=== PATIENT | female | born 1945 | race Caucasian/White ===

== ENCOUNTER 2016-04-28 12:49 | Inpatient (IN) | payer MEDICARE ==
[~2016-04-28] VITALS: Ht 175.3 cm; Wt 61.4 kg
[2016-04-28 14:00] VITALS: BP 100/43
[2016-04-28] MEDS ORDERED: ALBUTEROL SULFATE 2.5 MG/3 ML NEBU. NEB PRN (14:15)
[2016-04-28] MEDS ORDERED: ACETAMINOPHEN 325 MG TABLET. PO PRN (14:15)
[2016-04-28] MEDS ORDERED: ONDANSETRON PF 4 MG/2 ML VIAL. IV PRN (14:15)
[2016-04-28] MEDS ORDERED: hydrALAZINE 20 MG/ML VIAL. IVP PRN (14:15)
--- NOTE | 2016-04-28 14:27 | PDOC1 ---
History and Physical Past Medical History Pulmonary: Pneumonia CENTRAL NERVOUS SYSTEM: Seizure, Other Psych: Anxiety, Depression, Panic Renal/: Urinary Incontinence Social History Smoke: No ALCOHOL: none Drugs: None Current Medications Current Medications Current Medications Medications (Trade) Dose Ordered Sig/Karen Start Time Stop Time Status Last Admin Dose Admin Acetaminophen (Tylenol) 325 mg PRN Q6HRS PRN 04/28/16 14:15 Acetaminophen/ Hydrocodone Bitart (Lortab 5/325) 1 tab PRN Q6HRS PRN 04/28/16 14:15 Albuterol Sulfate (Ventolin Neb Soln) 2.5 mg PRN Q4HRS PRN 04/28/16 14:15 Hydralazine HCl (Apresoline) 10 mg PRN Q4HRS PRN 04/28/16 14:15 Ondansetron HCl (Zofran) 4 mg PRN Q8HRS PRN 04/28/16 14:15 Allergies Allergies Allergies Coded Allergies Type Severity Reaction Last Updated Verified I S O L A T I O N *CONTACT* Allergy Unknown 09/15/15 Yes No Known Medication Allergies Allergy Unknown 09/15/15 Yes ROS Review of System CONSTITUTIONAL: No fever or chills EYES: No recent changes SKIN: No rash or itching CARDIOVASCULAR: No chest pain, syncope, palpitations, or edema RESPIRATORY: No SOB or cough GASTROINTESTINAL: No nausea, vomiting or abdominal pain NEUROLOGICAL: weakness bilateral, ENDOCRINE: No cold or heat intolerance GENITOURINARY: indwelling catheter MUSCULOSKELETAL: left leg pain LYMPHATICS: No enlarged lymph nodes PSYCHIATRIC: No anxiety or depression Physical Exam Physical Exam GEN.: No apparent distress. Alert and oriented. HEENT: Head is normocephalic, atraumatic NECK: Supple. no jvd LUNGS: Clear to auscultation. normal airflow HEART: RRR, S1, S2 present. Peripheral pulses intact ABDOMEN: Soft, nontender. Positive bowel sounds. EXTREMITIES: Without any cyanosis. left thigh warm and painful NEUROLOGIC: Normal speech, not able to move b/l LE, PSYCHIATRIC: Normal affect, normal mood. SKIN: No visible rash VTE Prophylaxis Ordered VTE Prophylaxis Devices: Yes VTE Pharmacological Prophylaxi: Contraindicated VEE TORRES MD Apr 28, 2016 14:27
[2016-04-28] MEDS: HYDROCODONE/APAP 5/325MG TABLET. PO PRN ×2 (15:10→23:19)
--- NOTE | 2016-04-28 16:26 | PDOC2 ---
NEUROLOGY CONSULT Date of Admission Date of Admission DATE: 04/28/16 TIME: 16:07 Reason for Consult Reason for Consult: IMPRESSION: Worsening of chronic paraplegia, worse x 1 week. Chronic urinary incontinence. Worsening of chronic LE weakness > UE. Seizure, hx Possible stroke in 09/16. Smoking Drinking MS x 22 years per her statement but not showed on MRI in 2015. RECOMMENDATIONS/PLAN: Brain and C-spine MRI w/wo contrast. Lab for TSH, Vit B12, Vit D, VEGA, UA, CPK, UDS OT/PT. HISTORY OF THE PRESENT ILLNESS: 70-y-old female patient stated that she has been having MS for 22 years. She said she had flare-up in the past years, but became persistent paraplegia and wheelchair bound sometimes for about 5 years. She stated she was able to mobile a week ago, but totally paraplegic since last Monday. She has been using Lebron for 5 years. She has not received any MS treatment. She said she has not seen Neurology before. She had brain MRI in 2015 which did not show evidence of MS. PAST MEDICAL HISTORY: Please see above. PAST SURGERY HISTORY: No major surgery recently. ALLERGY: Unknown MEDICATIONS: Refer to [facility] HISTORY: Non contributory. SOCIAL HISTORY: Denies illicit drug use. She smokes 1 pack of cigarettes a day for about 40 years, then decreased 1 pack for 2 days. She drinks alcohol from time to time. REVIEW OF SYSTEMS: Constitutional: Malnutrition. Head: No recent traumatic brain or head injury. Skin: No edema, or rash. Ear: No infection, tinnitus. Eyes: No vision loss or color blindness. Nose: No bleeding or purulent discharges. Hearing: No hearing decrease. Neck: No injury. Breast: No history of cancer, masses,or discharges. Cardiac: No PR, arrhythmia. Pulmonary: No COPD. GI: No GI ulcer, GI bleeding. Urinary/genital: incontinence. Endocrinologic: No cousin face, craniofacial dysmorphism, polydactyly, goiter. Skeletomuscular: Generalized weakness. Neurological: see HP. Psychiatric: Smoking, longstanding Otherwise, not -tkhve review of systems. PHYSICAL EXAMINATION: General appearance is in subacute on chronic distress. HEENT: Normocephalic and nontraumatic. Eyes, nose, ears, and throat are unremarkable. Neck is supple. No lymphadenopathy. No bruits are heard over the carotid artery. No crepitus. Cardiovascular: S1, S2, regular rate and rhythm. Pulmonary: Clear to auscultation bilaterally. Abdomen: Bowel sounds are positive. Extremities: No rash, lesions. Edema noted in LE. No restriction of range of motion in UE, paraplegic in LE NEUROLOGICAL EXAMINATION: Alert Oriented to time, place and person. PERRL. EOMI. CN: no focal findings. Muscle tone: fluctuated. Muscle strength: 4 UE, 1-2 LE DTR: 1+ UE, 0 at knee Plantar reflex: No response bilaterally Gait: Unable to walk. Sensory exam: no acute abnormal findings. No obvious cerebellar signs elicited. F-T-N test slow and not accurate. Current Medications Current Medications Current Medications Acetaminophen (Tylenol) 325 mg PRN Q6HRS PRN PO MILD PAIN / TEMP; Start at 14:15 Acetaminophen/ Hydrocodone Bitart (Lortab 5/325) 1 tab PRN Q6HRS PRN PO MODERATE TO SEVERE PAIN Last administered on 04/28/16t 15:10; Start 04/28/16 at 14:15 Hydralazine HCl (Apresoline) 10 mg PRN Q4HRS PRN IVP ELEVATED BP, SEE COMMENTS ; Start 04/28/16 at 14:15 Ondansetron HCl (Zofran) 4 mg PRN Q8HRS PRN IV NAUSEA/VOMITING; Start 04/28/16 at 14:15 Albuterol Sulfate (Ventolin Neb Soln) 2.5 mg PRN Q4HRS PRN NEB SHORTNESS OF BREATH; Start 04/28/16 at 14:15 Allergies Allergies: Coded Allergies: I S O L A T I O N *CONTACT* (Verified Allergy, Unknown, 09/15/15) chronic C. diff No Known Medication Allergies (Verified Allergy, Unknown, 09/15/15) Vitals VITALS Vital Signs Date Time Temp Pulse Resp B/P Pulse Ox O2 Delivery O2 Flow Rate FiO2 04/28/16 15:10 Room Air 04/28/16 14:00 97.5 79 16 100/43 92 97.5 JAY GODINEZ MD Apr 28, 2016 16:26
--- NOTE | 2016-04-28 16:56 | HP ---
ADMIT DATE: 04/28/2016 CHIEF COMPLAINT: Bilateral lower extremity pain and weakness. HISTORY OF PRESENT ILLNESS: This is a 70-year-old female patient with prior history of multiple sclerosis and chronic DVTs, on Xarelto. She was recently diagnosed with hematoma on 04/20, at that time, she was admitted to [facility] after she was discharged on 04/24. However, this morning she presented to [facility] again with worsening weakness in bilateral lower extremities and repeat imaging studies as per the ER report showed worsening of hematoma on the left thigh. Upon my examination, the patient complains of worsening weakness in bilateral lower extremities. Per patient, she was able to have some function in bilateral lower extremities; however, she has been wheelchair bound for long time. She denies any sensory changes, but weakness is pronounced. Currently, she has been on treatment for C. diff. PAST MEDICAL HISTORY: Hypertension, recurrent urinary tract infections, C. diff infection, multiple sclerosis, bilateral lower extremity DVTs. PAST SURGICAL HISTORY: Appendectomy, tonsillectomy. PERSONAL HISTORY: No smoking, no alcohol, currently wheelchair bound in a [place] [facility]. REVIEW OF SYSTEMS: Please see my electronic H and P. PHYSICAL EXAMINATION: Please see my electronic H and P. ALLERGIES: NKDA. LABORATORY FINDINGS: WBC 12,000, hemoglobin 13.2, hematocrit is ____. Platelets are 140. Creatinine is 1.2, sodium is 136, potassium is 4.7, chloride is 98, carbon dioxide 23, glucose level is 101. ASSESSMENT: 1. Left leg hematoma with pain related to oral anticoagulation. 2. Multiple sclerosis with bilateral lower extremity weakness, questionable exacerbation. 3. Hypertension. 4. Recurrent C. diff. 5. Recurrent urinary tract infections. 6. Thrombocytopenia around 76,000 as per [facility] report. PLAN: 1. We will consult Orthopedics for further evaluation. At this time, I will try to pain as tolerated. 2. The patient is on chronic indwelling Lebron catheter. 3. Also consult Neurology for possible MRI and further investigations. 4. Stool studies for C. diff. 5. Home medications list be reviewed. RN needs to call pharmacy to verify her home medications. 6. As per the report, the patient is paraplegic and wheelchair bound. 7. DVT prophylaxis with , hold Lovenox due to thrombocytopenia and hematoma. 8. P.r.n. hydralazine 10 mg IV q. 4 hours for hypertension. PROGNOSIS: Guarded. VEE TORRES MD DR: SHAINA/salma JOB#: [id number] / [id number] SAI
[2016-04-28] MEDS ORDERED: LACT1CAP2 PO (18:18)
[2016-04-28] MEDS ORDERED: BACL20TA PO (18:18)
[2016-04-28] MEDS ORDERED: CARV6.252 PO (18:19)
[2016-04-28] MEDS ORDERED: FURO40TA4 PO (18:21)
[2016-04-28] MEDS ORDERED: CHOL4POW11 PO (18:21)
[2016-04-28] MEDS ORDERED: HYDR-2867 PO (18:21)
[2016-04-28] MEDS ORDERED: LISI-334 PO (18:22)
[2016-04-28] MEDS ORDERED: PARO40TA2 PO (18:23)
[2016-04-28] MEDS ORDERED: MULT1TAB52 PO (18:23)
[2016-04-28] MEDS ORDERED: NICO1PAT25 TP (18:23)
[2016-04-28] MEDS ORDERED: POTA10CA PO (18:25)
[2016-04-28] MEDS ORDERED: VANC125S PO (18:25)
[2016-04-28] MEDS ORDERED: DABI150C PO (18:25)
[2016-04-28] MEDS ORDERED: ALPR0.25 PO (18:25)
[2016-04-28] MEDS ORDERED: ALPRAZOLAM 0.25 MG TABLET PO PRN (18:30)
[2016-04-28 19:00] VITALS: BP 87/57
[2016-04-28] MEDS ORDERED: CARVEDILOL 6.25 MG TABLET PO SCH (19:00)
[2016-04-28] MEDS ORDERED: MORPHINE ER 15 MG TABLET.ER PO ONE (20:15)
[2016-04-28] MEDS: BACLOFEN 10 MG TABLET PO SCH (20:49)
[2016-04-28] MEDS: HYDRALAZINE 10 MG TABLET PO SCH (20:55)
[2016-04-28] MEDS ORDERED: LISINOPRIL 20 MG TABLET PO SCH (21:00)
[2016-04-28] MEDS ORDERED: IV NORMAL SALINE 500ML BAG 500 ML IV ONE (21:15)
[2016-04-28] MEDS: VANCOMYCIN 125 MG/2.5 ML ORAL SOLUTION. PO SCH (21:19)
[2016-04-28 23:00] VITALS: BP 118/65
[2016-04-28] MEDS: FUROSEMIDE 40 MG TABLET PO SCH (23:18)
[2016-04-29 03:00] VITALS: BP 99/58
[2016-04-29 04:52] LABS: BASO # 0.1 x10^3/uL (0.0-0.2); BASO % 1 % (0-3); EOS % 4 % (0-3); HEMATOCRIT 36.6 % (36.0-47.0); LYMPH # 1.9 x10^3/uL (1.0-4.8); LYMPH % 17 % (24-48); MEAN CORPUSCULAR HEMOGLOBIN 29 pg (25-35); MEAN CORPUSCULAR HGB CONC 33 g/dL (31-37); MEAN CORPUSCULAR VOLUME 89 fL (79-100); MONO % 11 % (0-9); NEUT % 66 % (31-73); PLATELET COUNT 275 x10^3/uL (140-400); RED BLOOD COUNT 4.13 x10^6/uL (3.50-5.40); RED CELL DISTRIBUTION WIDTH 15.2 % (11.5-14.5); WHITE BLOOD COUNT 10.7 x10^3/uL (4.0-11.0)
[2016-04-29 05:44] LABS: CALCIUM 8.6 mg/dL (8.5-10.1); CREATININE 0.7 mg/dL (0.6-1.0); GFR 82.5; POTASSIUM 4.3 mmol/L (3.5-5.1)
[2016-04-29 06:03] LABS: BARBITURATES NEG (NEG); BENZODIAZEPINES NEG (NEG); CANNABINOIDS NEG (NEG); COCAINE NEG (NEG); METHADONE NEG (NEG); OPIATES POS (NEG); PHENCYCLIDINE NEG (NEG)
[2016-04-29 06:05] LABS: ETHANOL, URINE NEG (NEG)
[2016-04-29 07:00] VITALS: BP 103/63
[2016-04-29] MEDS: CARVEDILOL 6.25 MG TABLET PO SCH ×2 (08:00→17:50)
[2016-04-29] MEDS: POTASSIUM CHLORIDE 20 MEQ TABLET.ER. PO SCH (08:00)
[2016-04-29] MEDS: VANCOMYCIN 125 MG/2.5 ML ORAL SOLUTION. PO SCH ×4 (09:00→20:33)
[2016-04-29] MEDS: BACLOFEN 10 MG TABLET PO SCH ×3 (09:00→20:33)
[2016-04-29] MEDS: NICOTINE 14MG PATCH. TD SCH ×2 (09:00→14:36)
[2016-04-29] MEDS: PAROXETINE 20 MG TABLET. PO SCH (09:00)
[2016-04-29] MEDS: MULTIVITAMIN with MINERAL TABLET. PO SCH (09:00)
[2016-04-29] MEDS: HYDRALAZINE 10 MG TABLET PO SCH ×2 (09:00→20:33)
[2016-04-29] MEDS ORDERED: FUROSEMIDE 40 MG TABLET PO SCH (09:00)
[2016-04-29] MEDS: LACTOBACILLUS ACIDOPH & BULGAR 1 TABLET. PO SCH (09:00)
[2016-04-29] MEDS: CHOLESTYRAMINE/ASPARTAME 4 GM PACKET PO SCH (09:00)
[2016-04-29] MEDS: HYDROCODONE/APAP 5/325MG TABLET. PO PRN ×2 (09:28→20:33)
[2016-04-29] MEDS ORDERED: GADOBUTROL 7.5 MMOL/7.5 ML VIAL IV ONE (09:30)
--- NOTE | 2016-04-29 10:40 | RAD ---
PROCEDURE MRI brain with and without contrast. HISTORY Multiple sclerosis, extremity weakness. TECHNIQUE Sagittal T1, sagittal FLAIR, axial T1, axial T2, axial FLAIR, axial T2 gradient, diffusion imaging with ADC map, post-contrast axial, and post-contrast coronal sequences are provided. Patient received 1 dose of 6 milliliters of intravenous Gadavist for today's exams. COMPARISON September 15, 2015. FINDINGS There is prominence of the ventricles and sulci. FLAIR hyperintensities in the supratentorial white matter including a few oriented radially from the lateral ventricles are noted and similar to prior exam. One potential lesion in the leena on the right is noted. No callosal lesion is identified. No new lesion is identified. There is no enhancement with any of these lesions. There is no intracranial hemorrhage or extra-axial fluid collection. There is no mass effect or midline shift. There is no restricted diffusion to suggest an acute infarct. Cervicomedullary junction is unremarkable. Pituitary and suprasellar region are unremarkable. Intracranial flow voids are preserved. There is minimal ethmoid mucosal thickening. There is no pathologic enhancement. IMPRESSION 1. Nonspecific FLAIR hyperintensities in the supratentorial white matter. None demonstrate any associated enhancement. No new white matter lesion is apparent. This may represent a combination of demyelinating plaque and small vessel ischemic disease. 2. Brain parenchymal volume loss. Electronically signed by: Torey Wade MD (Apr 29, 2016 10:39:40)
--- NOTE | 2016-04-29 10:48 | RAD ---
PROCEDURE MRI cervical spine with and without contrast. HISTORY Multiple sclerosis. Extremity weakness. TECHNIQUE Sagittal T1, sagittal T2, sagittal STIR, sagittal post contrast, axial T1, axial T2, axial T2 gradient, and axial post-contrast sequences are provided. 6 milliliters of intravenous Gadavist was administered in total for today's exams without complication. COMPARISON None. FINDINGS There is no cord hyperintensity confirmed in 2 planes to suggest a demyelinating plaque within the cervical cord. There is no pathologic enhancement within the cord. Cervicomedullary junction is unremarkable. There is no malalignment. There is no worrisome marrow lesion. There is no marrow edema. Degenerative findings by individual level are as follows: C2-C3: There is minimal facet hypertrophy and mild right uncinate process spurring without canal or foraminal compromise. C3-C4: Disc osteophyte complex and uncinate process spurring are noted. There is buckling of ligamentum flavum. Midline AP diameter of the thecal sac is 11 millimeters. There is no foraminal narrowing. C4-C5: Disc osteophyte complex and uncinate process spurring are noted. There is buckling of ligamentum flavum and facet hypertrophy. Midline AP diameter of the thecal sac is narrowed to 10 millimeters. Foraminal narrowing is probably moderate. C5-C6: Disc osteophyte complex and uncinate process spurring are noted. There is buckling of ligamentum flavum. Midline AP diameter of the thecal sac is 10 millimeters. There is severe right and probably moderate to severe left foraminal narrowing. C6-C7: There is a minimal disc osteophyte complex and mild right facet hypertrophy, without canal or foraminal compromise. C7-T1: There is right facet hypertrophy. There is no canal or foraminal compromise. IMPRESSION 1. No cord hyperintensity or cord enhancement to suggest demyelinating plaque. 2. Degenerative changes in the cervical spine, greatest at C5-C6 and C4-C5. Electronically signed by: Torey Wade MD (Apr 29, 2016 10:46:21)
[2016-04-29 11:00] VITALS: BP 98/53
[2016-04-29 11:21] LABS: BILIRUBIN,URINE NEGATIVE (NEG); GLUCOSE,URINE NEGATIVE (NEG); NITRITE,URINE NEGATIVE (NEG); PH,URINE 5.5; PROTEIN,URINE NEGATIVE (NEG-TRACE); UROBILINOGEN,URINE 0.2 mg/dL (0.2 mg/dL)
[2016-04-29 11:45] LABS: BACTERIA,URINE FEW /HPF (0-FEW); RBC,URINE RARE /HPF (0-2); SQUAMOUS EPITHELIAL CELL,UR OCC /LPF
--- NOTE | 2016-04-29 14:08 | PDOC ---
PROGRESS NOTES Chief Complaint Chief Complaint MS exacerbation LE weakness, bilateral Left leg hematoma with pain related to oral anticoagulation. swelling on OSH imaging htn HX C. diff. Thrombocytopenia was reported, normal here History of Present Illness History of Present Illness admit last night, still in leg pain, but str better declines pt and OT today Vitals Vitals Vital Signs Date Time Temp Pulse Resp B/P Pulse Ox O2 Delivery O2 Flow Rate FiO2 04/29/16 11:00 97.9 82 16 98/53 98 Room Air 97.9 Physical Exam General: Alert, Oriented X3, Cooperative, mild distress, moderate distress Heart: Regular rate, No murmurs Abdomen: Normal bowel sounds Extremities: No clubbing, Other (weakness bilat, diffuse) Skin: No rashes Labs LABS Laboratory Tests Test 04/28/16 17:15 04/28/16 18:30 04/29/16 03:50 04/29/16 05:00 Nasal Screen MRSA (PCR) Negative (Negative) Creatine Kinase 668U/L (26-192) Vitamin B12 Level 484pg/mL (211-946) Thyroid Stimulating Hormone (TSH) 0.304uIU/mL (0.358-3.74) White Blood Count 10.7x10^3/uL (4.0-11.0) Red Blood Count 4.13x10^6/uL (3.50-5.40) Hemoglobin 12.0g/dL (12.0-15.5) Hematocrit 36.6% (36.0-47.0) Mean Corpuscular Volume 89fL (79-100) Mean Corpuscular Hemoglobin 29pg (25-35) Mean Corpuscular Hemoglobin Concent 33g/dL (31-37) Red Cell Distribution Width 15.2% (11.5-14.5) Platelet Count 275x10^3/uL (140-400) Neutrophils (%) (Auto) 66% (31-73) Lymphocytes (%) (Auto) 17% (24-48) Monocytes (%) (Auto) 11% (0-9) Eosinophils (%) (Auto) 4% (0-3) Basophils (%) (Auto) 1% (0-3) Neutrophils # (Auto) 7.0x10^3uL (1.8-7.7) Lymphocytes # (Auto) 1.9x10^3/uL (1.0-4.8) Monocytes # (Auto) 1.2x10^3/uL (0.0-1.1) Eosinophils # (Auto) 0.5x10^3/uL (0.0-0.7) Basophils # (Auto) 0.1x10^3/uL (0.0-0.2) Sodium Level 136mmol/L (136-145) Potassium Level 4.3mmol/L (3.5-5.1) Chloride Level 103mmol/L (98-107) Carbon Dioxide Level 24mmol/L (21-32) Anion Gap 9 (6-14) Blood Urea Nitrogen 31mg/dL (7-20) Creatinine 0.7mg/dL (0.6-1.0) Estimated GFR (Cockcroft-Gault) 82.5 Glucose Level 96mg/dL (70-99) Calcium Level 8.6mg/dL (8.5-10.1) Urine Collection Type Unknown Urine Color Yellow Urine Clarity Clear Urine pH 5.5 Urine Specific Beaman 1.010 Urine Protein Negativemg/dL (NEG-TRACE) Urine Glucose (UA) Negativemg/dL (NEG) Urine Ketones (Stick) Negativemg/dL (NEG) Urine Blood Trace (NEG) Urine Nitrite Negative (NEG) Urine Bilirubin Negative (NEG) Urine Urobilinogen Dipstick 0.2mg/dL (0.2 mg/dL) Urine Leukocyte Esterase Small (NEG) Urine RBC Rare/HPF (0-2) Urine WBC 5-10/HPF (0-4) Urine Squamous Epithelial Cells Occ/LPF Urine Bacteria Few/HPF (0-FEW) Urine Opiates Screen Pos (NEG) Urine Methadone Screen Neg (NEG) Urine Barbiturates Neg (NEG) Urine Phencyclidine Screen Neg (NEG) Urine Amphetamine/Methamphetamine Neg (NEG) Urine Benzodiazepines Screen Neg (NEG) Urine Cocaine Screen Neg (NEG) Urine Cannabinoids Screen Neg (NEG) Urine Ethyl Alcohol Neg (NEG) Review of Systems Review of Systems pain, weakness, nausea, lethargy Assessment and Plan Assessmemt and Plan Ortho to eval left leg pain, may review OSH imaging, records Neuro eval for MS, acute phase pt feels a little imrpoved today Problems: Comment Review of Relevant I have reviewed the following items sridevi (where applicable) has been applied. Labs Laboratory Tests Test 1/26/17 17:15 04/28/16 18:30 04/29/16 03:50 04/29/16 05:00 Nasal Screen MRSA (PCR) Negative (Negative) Creatine Kinase 668U/L (26-192) Vitamin B12 Level 484pg/mL (211-946) Thyroid Stimulating Hormone (TSH) 0.304uIU/mL (0.358-3.74) White Blood Count 10.7x10^3/uL (4.0-11.0) Red Blood Count 4.13x10^6/uL (3.50-5.40) Hemoglobin 12.0g/dL (12.0-15.5) Hematocrit 36.6% (36.0-47.0) Mean Corpuscular Volume 89fL (79-100) Mean Corpuscular Hemoglobin 29pg (25-35) Mean Corpuscular Hemoglobin Concent 33g/dL (31-37) Red Cell Distribution Width 15.2% (11.5-14.5) Platelet Count 275x10^3/uL (140-400) Neutrophils (%) (Auto) 66% (31-73) Lymphocytes (%) (Auto) 17% (24-48) Monocytes (%) (Auto) 11% (0-9) Eosinophils (%) (Auto) 4% (0-3) Basophils (%) (Auto) 1% (0-3) Neutrophils # (Auto) 7.0x10^3uL (1.8-7.7) Lymphocytes # (Auto) 1.9x10^3/uL (1.0-4.8) Monocytes # (Auto) 1.2x10^3/uL (0.0-1.1) Eosinophils # (Auto) 0.5x10^3/uL (0.0-0.7) Basophils # (Auto) 0.1x10^3/uL (0.0-0.2) Sodium Level 136mmol/L (136-145) Potassium Level 4.3mmol/L (3.5-5.1) Chloride Level 103mmol/L (98-107) Carbon Dioxide Level 24mmol/L (21-32) Anion Gap 9 (6-14) Blood Urea Nitrogen 31mg/dL (7-20) Creatinine 0.7mg/dL (0.6-1.0) Estimated GFR (Cockcroft-Gault) 82.5 Glucose Level 96mg/dL (70-99) Calcium Level 8.6mg/dL (8.5-10.1) Urine Collection Type Unknown Urine Color Yellow Urine Clarity Clear Urine pH 5.5 Urine Specific Beaman 1.010 Urine Protein Negativemg/dL (NEG-TRACE) Urine Glucose (UA) Negativemg/dL (NEG) Urine Ketones (Stick) Negativemg/dL (NEG) Urine Blood Trace (NEG) Urine Nitrite Negative (NEG) Urine Bilirubin Negative (NEG) Urine Urobilinogen Dipstick 0.2mg/dL (0.2 mg/dL) Urine Leukocyte Esterase Small (NEG) Urine RBC Rare/HPF (0-2) Urine WBC 5-10/HPF (0-4) Urine Squamous Epithelial Cells Occ/LPF Urine Bacteria Few/HPF (0-FEW) Urine Opiates Screen Pos (NEG) Urine Methadone Screen Neg (NEG) Urine Barbiturates Neg (NEG) Urine Phencyclidine Screen Neg (NEG) Urine Amphetamine/Methamphetamine Neg (NEG) Urine Benzodiazepines Screen Neg (NEG) Urine Cocaine Screen Neg (NEG) Urine Cannabinoids Screen Neg (NEG) Urine Ethyl Alcohol Neg (NEG) Laboratory Tests Test 04/28/16 17:15 04/28/16 18:30 04/29/16 03:50 04/29/16 05:00 Nasal Screen MRSA (PCR) Negative (Negative) Creatine Kinase 668U/L (26-192) Vitamin B12 Level 484pg/mL (211-946) Thyroid Stimulating Hormone (TSH) 0.304uIU/mL (0.358-3.74) White Blood Count 10.7x10^3/uL (4.0-11.0) Red Blood Count 4.13x10^6/uL (3.50-5.40) Hemoglobin 12.0g/dL (12.0-15.5) Hematocrit 36.6% (36.0-47.0) Mean Corpuscular Volume 89fL (79-100) Mean Corpuscular Hemoglobin 29pg (25-35) Mean Corpuscular Hemoglobin Concent 33g/dL (31-37) Red Cell Distribution Width 15.2% (11.5-14.5) Platelet Count 275x10^3/uL (140-400) Neutrophils (%) (Auto) 66% (31-73) Lymphocytes (%) (Auto) 17% (24-48) Monocytes (%) (Auto) 11% (0-9) Eosinophils (%) (Auto) 4% (0-3) Basophils (%) (Auto) 1% (0-3) Neutrophils # (Auto) 7.0x10^3uL (1.8-7.7) Lymphocytes # (Auto) 1.9x10^3/uL (1.0-4.8) Monocytes # (Auto) 1.2x10^3/uL (0.0-1.1) Eosinophils # (Auto) 0.5x10^3/uL (0.0-0.7) Basophils # (Auto) 0.1x10^3/uL (0.0-0.2) Sodium Level 136mmol/L (136-145) Potassium Level 4.3mmol/L (3.5-5.1) Chloride Level 103mmol/L (98-107) Carbon Dioxide Level 24mmol/L (21-32) Anion Gap 9 (6-14) Blood Urea Nitrogen 31mg/dL (7-20) Creatinine 0.7mg/dL (0.6-1.0) Estimated GFR (Cockcroft-Gault) 82.5 Glucose Level 96mg/dL (70-99) Calcium Level 8.6mg/dL (8.5-10.1) Urine Collection Type Unknown Urine Color Yellow Urine Clarity Clear Urine pH 5.5 Urine Specific Beaman 1.010 Urine Protein Negativemg/dL (NEG-TRACE) Urine Glucose (UA) Negativemg/dL (NEG) Urine Ketones (Stick) Negativemg/dL (NEG) Urine Blood Trace (NEG) Urine Nitrite Negative (NEG) Urine Bilirubin Negative (NEG) Urine Urobilinogen Dipstick 0.2mg/dL (0.2 mg/dL) Urine Leukocyte Esterase Small (NEG) Urine RBC Rare/HPF (0-2) Urine WBC 5-10/HPF (0-4) Urine Squamous Epithelial Cells Occ/LPF Urine Bacteria Few/HPF (0-FEW) Urine Opiates Screen Pos (NEG) Urine Methadone Screen Neg (NEG) Urine Barbiturates Neg (NEG) Urine Phencyclidine Screen Neg (NEG) Urine Amphetamine/Methamphetamine Neg (NEG) Urine Benzodiazepines Screen Neg (NEG) Urine Cocaine Screen Neg (NEG) Urine Cannabinoids Screen Neg (NEG) Urine Ethyl Alcohol Neg (NEG) Medications Current Medications Acetaminophen (Tylenol) 325 mg PRN Q6HRS PRN PO MILD PAIN / TEMP; Start at 14:15 Acetaminophen/ Hydrocodone Bitart (Lortab 5/325) 1 tab PRN Q6HRS PRN PO MODERATE TO SEVERE PAIN Last administered on 04/29/16 09:28; Start 04/28/16 at 14:15 Hydralazine HCl (Apresoline) 10 mg PRN Q4HRS PRN IVP ELEVATED BP, SEE COMMENTS ; Start 04/28/16 at 14:15 Ondansetron HCl (Zofran) 4 mg PRN Q8HRS PRN IV NAUSEA/VOMITING; Start 04/28/16 at 14:15 Albuterol Sulfate (Ventolin Neb Soln) 2.5 mg PRN Q4HRS PRN NEB SHORTNESS OF BREATH; Start 04/28/16 at 14:15 Alprazolam (Xanax) 0.25 mg PRN DAILY PRN PO ANXIETY / AGITATION; Start at 18:30 Carvedilol (Coreg) 6.25 mg BIDWMEALS PO ; Start 04/28/16 at 19:00; Stop at 21:14; Status DC Furosemide (Lasix) 40 mg DAILY PO ; Start 04/29/16 at 09:00; Stop 04/29/16 at 09 :00; Status DC Hydralazine HCl (Apresoline) 10 mg BID PO ; Start 04/28/16 at 21:00 Lisinopril (Prinivil) 20 mg BID PO ; Start 04/28/16 at 21:00; Stop 04/28/16 at 21:13; Status DC Nicotine (Nicoderm Cq 14mg) 1 patch DAILY TD ; Start 04/29/16 at 09:00 Baclofen (Lioresal) 20 mg TID PO Last administered on 04/29/16 09:00; Start at 21:00 Multivitamins/ Calcium (Thera M Plus) 1 tab DAILY PO ; Start 04/29/16 at 09:00 Paroxetine HCl (Paxil) 40 mg DAILY PO ; Start 04/29/16 at 09:00 Potassium Chloride (Klor-Con) 20 meq DAILYWBKFT PO ; Start 04/29/16 at 08:00 Vancomycin HCl 125 mg [id number] PO Last administered on 04/28/16 21:19; Start at 21:00 Cholestyramine Resin (Questran Light) 4 gm DAILY PO ; Start 04/29/16 at 09:00 Lactobacillus Acidophilus (Bacid, Gin-Bid) 1 tab DAILY PO ; Start 04/29/16 at 09:00 Oxycodone HCl (Roxicodone) 5 mg PRN Q6HRS PRN PO PAIN; Start 04/28/16 at 20:15 Morphine Sulfate 15 mg 15 mg 1X ONCE PO Last administered on 04/28/16 21:19; Start 04/28/16 at 20:15; Stop 04/28/16 at 20:16; Status DC Sodium Chloride (Iv Sodium Chloride 0.9% 500ml Bag) 500 ml @ 500 mls/hr 1X ONCE IV Last administered on 04/28/16 21:23; Start 04/28/16 at 21:15; Stop at 22:14; Status DC Carvedilol (Coreg) 3.125 mg BIDWMEALS PO ; Start 04/29/16 at 08:00 Furosemide (Lasix) 40 mg HS PO Last administered on 04/28/16 23:18; Start at 22:00 Gadobutrol (Gadavist) 6 mmol 1X ONCE IV Last administered on 04/29/16 09:30; Start 04/29/16 at 09:30; Stop 04/29/16 at 09:32; Status DC Active Scripts Active Reported Xanax (Alprazolam) 0.25 Mg Tablet 0.25 Mg PO PRN DAILY PRN Vancomycin HCl 125 Mg/2.5 Ml Syringe 125 Mg PO QID Pradaxa (Dabigatran Etexilate Mesylate) 150 Mg Capsule 150 Mg PO BID Potassium Chloride 10 Meq Capsule.er 20 Meq PO DAILY Paroxetine Hcl 40 Mg Tablet 40 Mg PO DAILY NICODERM CQ 14mg (Nicotine) 1 Each Patch.td24 1 Patch TP DAILY Multivitamins (Multivitamin) 1 Each Tablet 1 Tab PO DAILY Lisinopril 20 Mg Tablet 20 Mg PO BID Hydralazine Hcl 10 Mg Tablet 1 Tab PO BID Furosemide 40 Mg Tablet 40 Mg PO DAILY Questran Packet (Cholestyramine (With Sugar)) 4 Gm Powd.pack 4 Gm PO Carvedilol 6.25 Mg Tablet 1 Tab PO BID Baclofen 20 Mg Tablet 20 Mg PO TID Acidophilus (Lactobacillus Acidophilus) 1 Each Capsule 1 Each PO Vitals/I & O Vital Sign - Last 24 Hours 04/28/16 04/28/16 04/28/16 04/28/16 15:10 17:10 19:00 19:00 Temp 97.7 97.7 Pulse 79 78 Resp 18 B/P 100/43 87/57 Pulse Ox 93 93 O2 Delivery Room Air Room Air Room Air 04/28/16 04/28/16 04/28/16 04/28/16 20:00 20:55 20:56 21:19 Resp 16 B/P 87/55 87/55 Pulse Ox 93 O2 Delivery Room Air Room Air 04/28/16 04/28/16 04/29/16 04/29/16 23:00 23:19 00:19 01:27 Temp 98.2 98.2 Pulse 96 Resp 18 16 16 16 B/P 118/65 Pulse Ox 91 93 93 93 O2 Delivery Room Air Room Air Room Air 04/29/16 04/29/16 04/29/16 04/29/16 03:00 07:00 08:00 09:28 Temp 98.4 99.2 98.4 99.2 Pulse 89 93 Resp 18 16 B/P 99/58 103/63 Pulse Ox 92 91 O2 Delivery Room Air Room Air Room Air Room Air 04/29/16 04/29/16 10:36 11:00 Temp 97.9 97.9 Pulse 82 Resp 16 B/P 98/53 Pulse Ox 98 O2 Delivery Room Air Room Air Intake and Output 04/28/16 04/28/16 04/29/16 15:00 23:00 07:00 Intake Total 120 ml 240 ml Output Total 550 ml Balance -430 ml 240 ml NITIN CAMPBELL MD Apr 29, 2016 14:08
--- NOTE | 2016-04-29 14:22 | PDOC ---
PROGRESS NOTES Assessment Assessment Worsening of chronic paraplegia, worse x 1 week. Chronic urinary incontinence. Worsening of chronic LE weakness > UE. Seizure, hx Possible stroke in 09/16. Smoking Drinking MS x 22 years per her statement but not showed on MRI in 2016. Questionable MS. Narcotic use. RECOMMENDATIONS/PLAN: Treat medical diseases. OT/PT Rehab. Brain MRI and C-spine MRI w/wo contrast on 04/29: No MS conformed. No new lesion. Small vessel disease. HISTORY OF THE PRESENT ILLNESS: 70-y-old female patient stated that she has been having MS for 22 years. She said she had flare-up in the past years, but became persistent paraplegia and wheelchair bound sometimes for about 5 years. She stated she was able to mobile a week ago, but totally paraplegic since last Monday. She has been using [facility] for 5 years. She has not received any MS treatment. She said she has not seen Neurology before. She had brain MRI in 2015 which did not show evidence of MS. PAST MEDICAL HISTORY: Please see above. PAST SURGERY HISTORY: No major surgery recently. ALLERGY: Unknown MEDICATIONS: Refer to [facility] FAMILY HISTORY: Non contributory. SOCIAL HISTORY: Denies illicit drug use. She smokes 1 pack of cigarettes a day for about 40 years, then decreased 1 pack for 2 days. She drinks alcohol from time to time. REVIEW OF SYSTEMS: Constitutional: Malnutrition. Head: No recent traumatic brain or head injury. Skin: No edema, or rash. Ear: No infection, tinnitus. Eyes: No vision loss or color blindness. Nose: No bleeding or purulent discharges. Hearing: No hearing decrease. Neck: No injury. Breast: No history of cancer, masses,or discharges. Cardiac: No OH, arrhythmia. Pulmonary: No COPD. GI: No GI ulcer, GI bleeding. Urinary/genital: incontinence. Endocrinologic: No cousin face, craniofacial dysmorphism, polydactyly, goiter. Skeletomuscular: Generalized weakness. Neurological: see HP. Psychiatric: Smoking, longstanding Otherwise, not [id number] review of systems. PHYSICAL EXAMINATION: General appearance is in subacute on chronic distress. HEENT: Normocephalic and nontraumatic. Eyes, nose, ears, and throat are unremarkable. Neck is supple. No lymphadenopathy. No bruits are heard over the carotid artery. No crepitus. Cardiovascular: S1, S2, regular rate and rhythm. Pulmonary: Clear to auscultation bilaterally. Abdomen: Bowel sounds are positive. Extremities: No rash, lesions. Edema noted in LE. No restriction of range of motion in UE, paraplegic in LE NEUROLOGICAL EXAMINATION: Alert Oriented to time, place and person. PERRL. EOMI. CN: no focal findings. Muscle tone: fluctuated. Muscle strength: 4 UE, 1-2 LE DTR: 1+ UE, 0 at knee Plantar reflex: No response bilaterally Gait: Unable to walk. Sensory exam: no acute abnormal findings. No obvious cerebellar signs elicited. F-T-N test slow and not accurate. Objective Objective Vital Signs Date Time Temp Pulse Resp B/P Pulse Ox O2 Delivery O2 Flow Rate FiO2 04/29/16 11:00 97.9 82 16 98/53 98 Room Air 97.9 Intake and Output 04/29/16 07:00 Intake Total 360 ml Output Total 550 ml Balance -190 ml Intake Oral 360 ml Output Urine Total 550 ml Vitals Signs Vitals VS - Last 72 Hours, by Label Date Time Temp Pulse Resp B/P Pulse Ox O2 Delivery O2 Flow Rate FiO2 04/29/16 11:00 97.9 82 16 98/53 98 Room Air 97.9 04/29/16 10:36 Room Air 04/29/16 09:28 Room Air 04/29/16 08:00 Room Air 04/29/16 07:00 99.2 93 16 103/63 91 Room Air 99.2 04/29/16 03:00 98.4 89 18 99/58 92 Room Air 98.4 04/29/16 01:27 16 93 Room Air 04/29/16 00:19 16 93 04/28/16 23:19 16 93 Room Air 04/28/16 23:00 98.2 96 18 118/65 91 Room Air 98.2 04/28/16 21:19 16 93 Room Air 04/28/16 20:56 87/55 04/28/16 20:55 87/55 04/28/16 20:00 Room Air 04/28/16 19:00 97.7 78 18 87/57 93 Room Air 97.7 04/28/16 19:00 79 100/43 04/28/16 17:10 93 Room Air 04/28/16 15:10 Room Air 04/28/16 14:00 Room Air 04/28/16 14:00 97.5 79 16 100/43 92 Room Air 97.5 04/28/16 14:00 97.5 79 16 100/43 92 Room Air 97.5 Laboratory Laboratory Laboratory Tests Test 04/28/16 17:15 04/28/16 18:30 04/29/16 03:50 04/29/16 05:00 Nasal Screen MRSA (PCR) Negative (Negative) Creatine Kinase 668U/L (26-192) Vitamin B12 Level 484pg/mL (211-946) Thyroid Stimulating Hormone (TSH) 0.304uIU/mL (0.358-3.74) White Blood Count 10.7x10^3/uL (4.0-11.0) Red Blood Count 4.13x10^6/uL (3.50-5.40) Hemoglobin 12.0g/dL (12.0-15.5) Hematocrit 36.6% (36.0-47.0) Mean Corpuscular Volume 89fL (79-100) Mean Corpuscular Hemoglobin 29pg (25-35) Mean Corpuscular Hemoglobin Concent 33g/dL (31-37) Red Cell Distribution Width 15.2% (11.5-14.5) Platelet Count 275x10^3/uL (140-400) Neutrophils (%) (Auto) 66% (31-73) Lymphocytes (%) (Auto) 17% (24-48) Monocytes (%) (Auto) 11% (0-9) Eosinophils (%) (Auto) 4% (0-3) Basophils (%) (Auto) 1% (0-3) Neutrophils # (Auto) 7.0x10^3uL (1.8-7.7) Lymphocytes # (Auto) 1.9x10^3/uL (1.0-4.8) Monocytes # (Auto) 1.2x10^3/uL (0.0-1.1) Eosinophils # (Auto) 0.5x10^3/uL (0.0-0.7) Basophils # (Auto) 0.1x10^3/uL (0.0-0.2) Sodium Level 136mmol/L (136-145) Potassium Level 4.3mmol/L (3.5-5.1) Chloride Level 103mmol/L (98-107) Carbon Dioxide Level 24mmol/L (21-32) Anion Gap 9 (6-14) Blood Urea Nitrogen 31mg/dL (7-20) Creatinine 0.7mg/dL (0.6-1.0) Estimated GFR (Cockcroft-Gault) 82.5 Glucose Level 96mg/dL (70-99) Calcium Level 8.6mg/dL (8.5-10.1) Urine Collection Type Unknown Urine Color Yellow Urine Clarity Clear Urine pH 5.5 Urine Specific [place] 1.010 Urine Protein Negativemg/dL (NEG-TRACE) Urine Glucose (UA) Negativemg/dL (NEG) Urine Ketones (Stick) Negativemg/dL (NEG) Urine Blood Trace (NEG) Urine Nitrite Negative (NEG) Urine Bilirubin Negative (NEG) Urine Urobilinogen Dipstick 0.2mg/dL (0.2 mg/dL) Urine Leukocyte Esterase Small (NEG) Urine RBC Rare/HPF (0-2) Urine WBC 5-10/HPF (0-4) Urine Squamous Epithelial Cells Occ/LPF Urine Bacteria Few/HPF (0-FEW) Urine Opiates Screen Pos (NEG) Urine Methadone Screen Neg (NEG) Urine Barbiturates Neg (NEG) Urine Phencyclidine Screen Neg (NEG) Urine Amphetamine/Methamphetamine Neg (NEG) Urine Benzodiazepines Screen Neg (NEG) Urine Cocaine Screen Neg (NEG) Urine Cannabinoids Screen Neg (NEG) Urine Ethyl Alcohol Neg (NEG) Medication Medications Current Medications Alprazolam (Xanax) 0.25 mg PRN DAILY PRN PO ANXIETY / AGITATION; Start at 18:30 Baclofen (Lioresal) 20 mg TID PO Last administered on 04/29/16t 09:00; Start at 21:00 Carvedilol (Coreg) 3.125 mg BIDWMEALS PO ; Start 04/29/16 at 08:00 Carvedilol (Coreg) 6.25 mg BIDWMEALS PO ; Start 04/28/16 at 19:00; Stop at 21:14; Status DC Cholestyramine Resin (Questran Light) 4 gm DAILY PO ; Start 04/29/16 at 09:00 Furosemide (Lasix) 40 mg DAILY PO ; Start 04/29/16 at 09:00; Stop 04/29/16 at 09 :00; Status DC Furosemide (Lasix) 40 mg HS PO Last administered on 04/28/16 23:18; Start at 22:00 Gadobutrol (Gadavist) 6 mmol 1X ONCE IV Last administered on 04/29/16 09:30; Start 04/29/16 at 09:30; Stop 04/29/16 at 09:32; Status DC Hydralazine HCl (Apresoline) 10 mg BID PO ; Start 04/28/16 at 21:00 Lactobacillus Acidophilus (Bacid, Gin-Bid) 1 tab DAILY PO ; Start 04/29/16 at 09:00 Lisinopril (Prinivil) 20 mg BID PO ; Start 04/28/16 at 21:00; Stop 04/28/16 at 21:13; Status DC Morphine Sulfate 15 mg 15 mg 1X ONCE PO Last administered on 04/28/16 21:19; Start 04/28/16 at 20:15; Stop 04/28/16 at 20:16; Status DC Multivitamins/ Calcium (Thera M Plus) 1 tab DAILY PO ; Start 04/29/16 at 09:00 Nicotine (Nicoderm Cq 14mg) 1 patch DAILY TD ; Start 04/29/16 at 09:00 Oxycodone HCl (Roxicodone) 5 mg PRN Q6HRS PRN PO PAIN; Start 04/28/16 at 20:15 Paroxetine HCl (Paxil) 40 mg DAILY PO ; Start 04/29/16 at 09:00 Potassium Chloride (Klor-Con) 20 meq [id number] PO ; Start 04/29/16 at 08:00 Sodium Chloride (Iv Sodium Chloride 0.9% 500ml Bag) 500 ml @ 500 mls/hr 1X ONCE IV Last administered on 04/28/16 21:23; Start 04/28/16 at 21:15; Stop at 22:14; Status DC Vancomycin HCl 125 mg [id number] PO Last administered on 04/28/16 21:19; Start at 21:00 Comment Review of Relevant I have reviewed the following items sridevi (where applicable) has been applied. JAY GODINEZ MD Apr 29, 2016 14:22
[2016-04-29 15:00] VITALS: BP 120/70
[2016-04-29] MEDS: OXYCODONE IR 5 MG TABLET. PO PRN (15:33)
[2016-04-29 20:25] VITALS: BP 105/61
[2016-04-29] MEDS: FUROSEMIDE 40 MG TABLET PO SCH (20:33)
[2016-04-29 23:00] VITALS: BP 107/66
[2016-04-30] MEDS: OXYCODONE IR 5 MG TABLET. PO PRN ×3 (01:07→21:31)
[2016-04-30 01:14] LABS: VITAMIN D25(OH)TOTAL 19.5 ng/mL (30.0-100.0)
[2016-04-30 03:00] VITALS: BP 111/62
[2016-04-30 06:48] LABS: BASO # 0.1 x10^3/uL (0.0-0.2); BASO % 1 % (0-3); EOS % 4 % (0-3); HEMATOCRIT 41.7 % (36.0-47.0); HEMOGLOBIN 13.6 g/dL (12.0-15.5); LYMPH # 1.2 x10^3/uL (1.0-4.8); LYMPH % 9 % (24-48); MEAN CORPUSCULAR HEMOGLOBIN 29 pg (25-35); MEAN CORPUSCULAR HGB CONC 33 g/dL (31-37); MEAN CORPUSCULAR VOLUME 88 fL (79-100); MONO % 11 % (0-9); NEUT % 75 % (31-73); PLATELET COUNT 302 x10^3/uL (140-400); RED BLOOD COUNT 4.76 x10^6/uL (3.50-5.40); RED CELL DISTRIBUTION WIDTH 15.3 % (11.5-14.5); WHITE BLOOD COUNT 12.9 x10^3/uL (4.0-11.0)
[2016-04-30 06:58] LABS: CALCIUM 8.5 mg/dL (8.5-10.1); CREATININE 0.6 mg/dL (0.6-1.0); GFR 98.5; POTASSIUM 4.6 mmol/L (3.5-5.1)
[2016-04-30 07:00] VITALS: BP 118/62
[2016-04-30] MEDS: HYDROCODONE/APAP 5/325MG TABLET. PO PRN ×3 (08:46→23:59)
[2016-04-30] MEDS: POTASSIUM CHLORIDE 20 MEQ TABLET.ER. PO SCH (08:47)
[2016-04-30] MEDS: LACTOBACILLUS ACIDOPH & BULGAR 1 TABLET. PO SCH (08:47)
[2016-04-30] MEDS: BACLOFEN 10 MG TABLET PO SCH ×3 (08:47→21:30)
[2016-04-30] MEDS: MULTIVITAMIN with MINERAL TABLET. PO SCH (08:47)
[2016-04-30] MEDS: CARVEDILOL 6.25 MG TABLET PO SCH ×2 (08:48→16:07)
[2016-04-30] MEDS: PAROXETINE 20 MG TABLET. PO SCH (08:48)
[2016-04-30] MEDS: HYDRALAZINE 10 MG TABLET PO SCH ×2 (09:00→21:31)
[2016-04-30] MEDS: VANCOMYCIN 125 MG/2.5 ML ORAL SOLUTION. PO SCH ×4 (09:51→21:31)
--- NOTE | 2016-04-30 10:32 | PDOC ---
PROGRESS NOTES Subjective Subjective Patient says her legs continue to feel swollen and have little to no strength. The patient says she has had MS for 22 years. She was on medications for this years ago but hasn't been on anything recently. She states she does not have a neurologist. Objective Vital Signs Vital Signs Date Time Temp Pulse Resp B/P Pulse Ox O2 Delivery O2 Flow Rate FiO2 04/30/16 09:51 14 Room Air 04/30/16 08:48 90 118/62 04/30/16 07:00 98.1 90 98.1 04/30/16 02:07 92.0 Physical Exam Lying in bed. The left thigh is mildly swollen consistent with a hematoma. The compartments are soft. The hematoma is nontender to palpation. Bilateral lower extremities show severely diminished strength. She does not have much function of the bilateral lower extremities. Labs Laboratory Tests Test 04/28/16 17:15 04/28/16 18:30 04/29/16 03:50 04/29/16 05:00 Nasal Screen MRSA (PCR) Negative (Negative) Creatine Kinase 668U/L (26-192) Vitamin B12 Level 484pg/mL (211-946) 25-Hydroxy Vitamin D Total 19.5ng/mL (30.0-100.0) Thyroid Stimulating Hormone (TSH) 0.304uIU/mL (0.358-3.74) White Blood Count 10.7x10^3/uL (4.0-11.0) Red Blood Count 4.13x10^6/uL (3.50-5.40) Hemoglobin 12.0g/dL (12.0-15.5) Hematocrit 36.6% (36.0-47.0) Mean Corpuscular Volume 89fL (79-100) Mean Corpuscular Hemoglobin 29pg (25-35) Mean Corpuscular Hemoglobin Concent 33g/dL (31-37) Red Cell Distribution Width 15.2% (11.5-14.5) Platelet Count 275x10^3/uL (140-400) Neutrophils (%) (Auto) 66% (31-73) Lymphocytes (%) (Auto) 17% (24-48) Monocytes (%) (Auto) 11% (0-9) Eosinophils (%) (Auto) 4% (0-3) Basophils (%) (Auto) 1% (0-3) Neutrophils # (Auto) 7.0x10^3uL (1.8-7.7) Lymphocytes # (Auto) 1.9x10^3/uL (1.0-4.8) Monocytes # (Auto) 1.2x10^3/uL (0.0-1.1) Eosinophils # (Auto) 0.5x10^3/uL (0.0-0.7) Basophils # (Auto) 0.1x10^3/uL (0.0-0.2) Sodium Level 136mmol/L (136-145) Potassium Level 4.3mmol/L (3.5-5.1) Chloride Level 103mmol/L (98-107) Carbon Dioxide Level 24mmol/L (21-32) Anion Gap 9 (6-14) Blood Urea Nitrogen 31mg/dL (7-20) Creatinine 0.7mg/dL (0.6-1.0) Estimated GFR (Cockcroft-Gault) 82.5 Glucose Level 96mg/dL (70-99) Calcium Level 8.6mg/dL (8.5-10.1) Free Thyroxine 1.30ng/dL (0.76-1.46) Total Triiodothyronine 80ng/dL (71-180) Urine Collection Type Unknown Urine Color Yellow Urine Clarity Clear Urine pH 5.5 Urine Specific [place] 1.010 Urine Protein Negativemg/dL (NEG-TRACE) Urine Glucose (UA) Negativemg/dL (NEG) Urine Ketones (Stick) Negativemg/dL (NEG) Urine Blood Trace (NEG) Urine Nitrite Negative (NEG) Urine Bilirubin Negative (NEG) Urine Urobilinogen Dipstick 0.2mg/dL (0.2 mg/dL) Urine Leukocyte Esterase Small (NEG) Urine RBC Rare/HPF (0-2) Urine WBC 5-10/HPF (0-4) Urine Squamous Epithelial Cells Occ/LPF Urine Bacteria Few/HPF (0-FEW) Urine Opiates Screen Pos (NEG) Urine Methadone Screen Neg (NEG) Urine Barbiturates Neg (NEG) Urine Phencyclidine Screen Neg (NEG) Urine Amphetamine/Methamphetamine Neg (NEG) Urine Benzodiazepines Screen Neg (NEG) Urine Cocaine Screen Neg (NEG) Urine Cannabinoids Screen Neg (NEG) Urine Ethyl Alcohol Neg (NEG) Test 04/30/16 05:05 White Blood Count 12.9x10^3/uL (4.0-11.0) Red Blood Count 4.76x10^6/uL (3.50-5.40) Hemoglobin 13.6g/dL (12.0-15.5) Hematocrit 41.7% (36.0-47.0) Mean Corpuscular Volume 88fL (79-100) Mean Corpuscular Hemoglobin 29pg (25-35) Mean Corpuscular Hemoglobin Concent 33g/dL (31-37) Red Cell Distribution Width 15.3% (11.5-14.5) Platelet Count 302x10^3/uL (140-400) Neutrophils (%) (Auto) 75% (31-73) Lymphocytes (%) (Auto) 9% (24-48) Monocytes (%) (Auto) 11% (0-9) Eosinophils (%) (Auto) 4% (0-3) Basophils (%) (Auto) 1% (0-3) Neutrophils # (Auto) 9.7x10^3uL (1.8-7.7) Lymphocytes # (Auto) 1.2x10^3/uL (1.0-4.8) Monocytes # (Auto) 1.4x10^3/uL (0.0-1.1) Eosinophils # (Auto) 0.5x10^3/uL (0.0-0.7) Basophils # (Auto) 0.1x10^3/uL (0.0-0.2) Sodium Level 136mmol/L (136-145) Potassium Level 4.6mmol/L (3.5-5.1) Chloride Level 102mmol/L (98-107) Carbon Dioxide Level 25mmol/L (21-32) Anion Gap 9 (6-14) Blood Urea Nitrogen 30mg/dL (7-20) Creatinine 0.6mg/dL (0.6-1.0) Estimated GFR (Cockcroft-Gault) 98.5 Glucose Level 109mg/dL (70-99) Calcium Level 8.5mg/dL (8.5-10.1) Laboratory Tests Test 04/30/16 05:05 White Blood Count 12.9x10^3/uL (4.0-11.0) Red Blood Count 4.76x10^6/uL (3.50-5.40) Hemoglobin 13.6g/dL (12.0-15.5) Hematocrit 41.7% (36.0-47.0) Mean Corpuscular Volume 88fL (79-100) Mean Corpuscular Hemoglobin 29pg (25-35) Mean Corpuscular Hemoglobin Concent 33g/dL (31-37) Red Cell Distribution Width 15.3% (11.5-14.5) Platelet Count 302x10^3/uL (140-400) Neutrophils (%) (Auto) 75% (31-73) Lymphocytes (%) (Auto) 9% (24-48) Monocytes (%) (Auto) 11% (0-9) Eosinophils (%) (Auto) 4% (0-3) Basophils (%) (Auto) 1% (0-3) Neutrophils # (Auto) 9.7x10^3uL (1.8-7.7) Lymphocytes # (Auto) 1.2x10^3/uL (1.0-4.8) Monocytes # (Auto) 1.4x10^3/uL (0.0-1.1) Eosinophils # (Auto) 0.5x10^3/uL (0.0-0.7) Basophils # (Auto) 0.1x10^3/uL (0.0-0.2) Sodium Level 136mmol/L (136-145) Potassium Level 4.6mmol/L (3.5-5.1) Chloride Level 102mmol/L (98-107) Carbon Dioxide Level 25mmol/L (21-32) Anion Gap 9 (6-14) Blood Urea Nitrogen 30mg/dL (7-20) Creatinine 0.6mg/dL (0.6-1.0) Estimated GFR (Cockcroft-Gault) 98.5 Glucose Level 109mg/dL (70-99) Calcium Level 8.5mg/dL (8.5-10.1) Imaging Brain MRI showed demyelinating plaques. Ultrasound of left thigh taken at [facility] is consistent with hematoma. Assessment Assessment Left lateral thigh hematoma Problems: Plan Plan of Care Continue ice/heat to left thigh hematoma as needed. Surgical intervention is not necessary at this time. Dr. Johnson recommended the patient get acquainted with a regular neurologist to follow her care. KIMBERLY GAMBINO Apr 30, 2016 10:32
[2016-04-30 11:00] VITALS: BP 110/63
[2016-04-30] MEDS: CHOLESTYRAMINE/ASPARTAME 4 GM PACKET PO SCH (13:32)
--- NOTE | 2016-04-30 14:55 | PDOC ---
PROGRESS NOTES Chief Complaint Chief Complaint MS exacerbation LE weakness, bilateral Left leg hematoma with pain related to oral anticoagulation. swelling on OSH imaging htn HX C. diff. Thrombocytopenia was reported, normal here depression, insomnia, anxiety, start trazodone HS History of Present Illness History of Present Illness declined PT yesterday, start w/ OT today depression is severe today, discussed optimization of the small things at length with her, and 2 friends came for support Vitals Vitals Vital Signs Date Time Temp Pulse Resp B/P Pulse Ox O2 Delivery O2 Flow Rate FiO2 04/30/16 13:00 16 Room Air 04/30/16 11:00 98.1 72 110/63 90 98.1 04/30/16 02:07 92.0 Physical Exam General: Alert, Oriented X3, Cooperative, mild distress, moderate distress Heart: Regular rate, No murmurs Lungs: Clear Abdomen: Normal bowel sounds Extremities: No clubbing, Other (weakness bilat, diffuse) Skin: No rashes Labs LABS Laboratory Tests Test 04/30/16 05:05 White Blood Count 12.9x10^3/uL (4.0-11.0) Red Blood Count 4.76x10^6/uL (3.50-5.40) Hemoglobin 13.6g/dL (12.0-15.5) Hematocrit 41.7% (36.0-47.0) Mean Corpuscular Volume 88fL (79-100) Mean Corpuscular Hemoglobin 29pg (25-35) Mean Corpuscular Hemoglobin Concent 33g/dL (31-37) Red Cell Distribution Width 15.3% (11.5-14.5) Platelet Count 302x10^3/uL (140-400) Neutrophils (%) (Auto) 75% (31-73) Lymphocytes (%) (Auto) 9% (24-48) Monocytes (%) (Auto) 11% (0-9) Eosinophils (%) (Auto) 4% (0-3) Basophils (%) (Auto) 1% (0-3) Neutrophils # (Auto) 9.7x10^3uL (1.8-7.7) Lymphocytes # (Auto) 1.2x10^3/uL (1.0-4.8) Monocytes # (Auto) 1.4x10^3/uL (0.0-1.1) Eosinophils # (Auto) 0.5x10^3/uL (0.0-0.7) Basophils # (Auto) 0.1x10^3/uL (0.0-0.2) Sodium Level 136mmol/L (136-145) Potassium Level 4.6mmol/L (3.5-5.1) Chloride Level 102mmol/L (98-107) Carbon Dioxide Level 25mmol/L (21-32) Anion Gap 9 (6-14) Blood Urea Nitrogen 30mg/dL (7-20) Creatinine 0.6mg/dL (0.6-1.0) Estimated GFR (Cockcroft-Gault) 98.5 Glucose Level 109mg/dL (70-99) Calcium Level 8.5mg/dL (8.5-10.1) Assessment and Plan Assessmemt and Plan Leg weakess min bettert Problems: Comment Review of Relevant I have reviewed the following items sridevi (where applicable) has been applied. Labs Laboratory Tests Test 04/28/16 17:15 04/28/16 18:30 04/29/16 03:50 04/29/16 05:00 Nasal Screen MRSA (PCR) Negative (Negative) Creatine Kinase 668U/L (26-192) Vitamin B12 Level 484pg/mL (211-946) 25-Hydroxy Vitamin D Total 19.5ng/mL (30.0-100.0) Thyroid Stimulating Hormone (TSH) 0.304uIU/mL (0.358-3.74) White Blood Count 10.7x10^3/uL (4.0-11.0) Red Blood Count 4.13x10^6/uL (3.50-5.40) Hemoglobin 12.0g/dL (12.0-15.5) Hematocrit 36.6% (36.0-47.0) Mean Corpuscular Volume 89fL (79-100) Mean Corpuscular Hemoglobin 29pg (25-35) Mean Corpuscular Hemoglobin Concent 33g/dL (31-37) Red Cell Distribution Width 15.2% (11.5-14.5) Platelet Count 275x10^3/uL (140-400) Neutrophils (%) (Auto) 66% (31-73) Lymphocytes (%) (Auto) 17% (24-48) Monocytes (%) (Auto) 11% (0-9) Eosinophils (%) (Auto) 4% (0-3) Basophils (%) (Auto) 1% (0-3) Neutrophils # (Auto) 7.0x10^3uL (1.8-7.7) Lymphocytes # (Auto) 1.9x10^3/uL (1.0-4.8) Monocytes # (Auto) 1.2x10^3/uL (0.0-1.1) Eosinophils # (Auto) 0.5x10^3/uL (0.0-0.7) Basophils # (Auto) 0.1x10^3/uL (0.0-0.2) Sodium Level 136mmol/L (136-145) Potassium Level 4.3mmol/L (3.5-5.1) Chloride Level 103mmol/L (98-107) Carbon Dioxide Level 24mmol/L (21-32) Anion Gap 9 (6-14) Blood Urea Nitrogen 31mg/dL (7-20) Creatinine 0.7mg/dL (0.6-1.0) Estimated GFR (Cockcroft-Gault) 82.5 Glucose Level 96mg/dL (70-99) Calcium Level 8.6mg/dL (8.5-10.1) Free Thyroxine 1.30ng/dL (0.76-1.46) Total Triiodothyronine 80ng/dL (71-180) Urine Collection Type Unknown Urine Color Yellow Urine Clarity Clear Urine pH 5.5 Urine Specific [place] 1.010 Urine Protein Negativemg/dL (NEG-TRACE) Urine Glucose (UA) Negativemg/dL (NEG) Urine Ketones (Stick) Negativemg/dL (NEG) Urine Blood Trace (NEG) Urine Nitrite Negative (NEG) Urine Bilirubin Negative (NEG) Urine Urobilinogen Dipstick 0.2mg/dL (0.2 mg/dL) Urine Leukocyte Esterase Small (NEG) Urine RBC Rare/HPF (0-2) Urine WBC 5-10/HPF (0-4) Urine Squamous Epithelial Cells Occ/LPF Urine Bacteria Few/HPF (0-FEW) Urine Opiates Screen Pos (NEG) Urine Methadone Screen Neg (NEG) Urine Barbiturates Neg (NEG) Urine Phencyclidine Screen Neg (NEG) Urine Amphetamine/Methamphetamine Neg (NEG) Urine Benzodiazepines Screen Neg (NEG) Urine Cocaine Screen Neg (NEG) Urine Cannabinoids Screen Neg (NEG) Urine Ethyl Alcohol Neg (NEG) Test 04/30/16 05:05 White Blood Count 12.9x10^3/uL (4.0-11.0) Red Blood Count 4.76x10^6/uL (3.50-5.40) Hemoglobin 13.6g/dL (12.0-15.5) Hematocrit 41.7% (36.0-47.0) Mean Corpuscular Volume 88fL (79-100) Mean Corpuscular Hemoglobin 29pg (25-35) Mean Corpuscular Hemoglobin Concent 33g/dL (31-37) Red Cell Distribution Width 15.3% (11.5-14.5) Platelet Count 302x10^3/uL (140-400) Neutrophils (%) (Auto) 75% (31-73) Lymphocytes (%) (Auto) 9% (24-48) Monocytes (%) (Auto) 11% (0-9) Eosinophils (%) (Auto) 4% (0-3) Basophils (%) (Auto) 1% (0-3) Neutrophils # (Auto) 9.7x10^3uL (1.8-7.7) Lymphocytes # (Auto) 1.2x10^3/uL (1.0-4.8) Monocytes # (Auto) 1.4x10^3/uL (0.0-1.1) Eosinophils # (Auto) 0.5x10^3/uL (0.0-0.7) Basophils # (Auto) 0.1x10^3/uL (0.0-0.2) Sodium Level 136mmol/L (136-145) Potassium Level 4.6mmol/L (3.5-5.1) Chloride Level 102mmol/L (98-107) Carbon Dioxide Level 25mmol/L (21-32) Anion Gap 9 (6-14) Blood Urea Nitrogen 30mg/dL (7-20) Creatinine 0.6mg/dL (0.6-1.0) Estimated GFR (Cockcroft-Gault) 98.5 Glucose Level 109mg/dL (70-99) Calcium Level 8.5mg/dL (8.5-10.1) Laboratory Tests Test 04/30/16 05:05 White Blood Count 12.9x10^3/uL (4.0-11.0) Red Blood Count 4.76x10^6/uL (3.50-5.40) Hemoglobin 13.6g/dL (12.0-15.5) Hematocrit 41.7% (36.0-47.0) Mean Corpuscular Volume 88fL (79-100) Mean Corpuscular Hemoglobin 29pg (25-35) Mean Corpuscular Hemoglobin Concent 33g/dL (31-37) Red Cell Distribution Width 15.3% (11.5-14.5) Platelet Count 302x10^3/uL (140-400) Neutrophils (%) (Auto) 75% (31-73) Lymphocytes (%) (Auto) 9% (24-48) Monocytes (%) (Auto) 11% (0-9) Eosinophils (%) (Auto) 4% (0-3) Basophils (%) (Auto) 1% (0-3) Neutrophils # (Auto) 9.7x10^3uL (1.8-7.7) Lymphocytes # (Auto) 1.2x10^3/uL (1.0-4.8) Monocytes # (Auto) 1.4x10^3/uL (0.0-1.1) Eosinophils # (Auto) 0.5x10^3/uL (0.0-0.7) Basophils # (Auto) 0.1x10^3/uL (0.0-0.2) Sodium Level 136mmol/L (136-145) Potassium Level 4.6mmol/L (3.5-5.1) Chloride Level 102mmol/L (98-107) Carbon Dioxide Level 25mmol/L (21-32) Anion Gap 9 (6-14) Blood Urea Nitrogen 30mg/dL (7-20) Creatinine 0.6mg/dL (0.6-1.0) Estimated GFR (Cockcroft-Gault) 98.5 Glucose Level 109mg/dL (70-99) Calcium Level 8.5mg/dL (8.5-10.1) Medications Current Medications Acetaminophen (Tylenol) 325 mg PRN Q6HRS PRN PO MILD PAIN / TEMP; Start at 14:15 Acetaminophen/ Hydrocodone Bitart (Lortab 5/325) 1 tab PRN Q6HRS PRN PO MODERATE TO SEVERE PAIN Last administered on 04/30/16 08:46; Start 04/28/16 at 14:15 Hydralazine HCl (Apresoline) 10 mg PRN Q4HRS PRN IVP ELEVATED BP, SEE COMMENTS ; Start 04/28/16 at 14:15 Ondansetron HCl (Zofran) 4 mg PRN Q8HRS PRN IV NAUSEA/VOMITING; Start 04/28/16 at 14:15 Albuterol Sulfate (Ventolin Neb Soln) 2.5 mg PRN Q4HRS PRN NEB SHORTNESS OF BREATH; Start 04/28/16 at 14:15 Alprazolam (Xanax) 0.25 mg PRN DAILY PRN PO ANXIETY / AGITATION; Start at 18:30 Carvedilol (Coreg) 6.25 mg BIDWMEALS PO ; Start 04/28/16 at 19:00; Stop at 21:14; Status DC Furosemide (Lasix) 40 mg DAILY PO ; Start 04/29/16 at 09:00; Stop 04/29/16 at 09 :00; Status DC Hydralazine HCl (Apresoline) 10 mg BID PO ; Start 04/28/16 at 21:00 Lisinopril (Prinivil) 20 mg BID PO ; Start 04/28/16 at 21:00; Stop 04/28/16 at 21:13; Status DC Nicotine (Nicoderm Cq 14mg) 1 patch DAILY TD Last administered on 04/29/16 14: 36; Start 04/29/16 at 09:00 Baclofen (Lioresal) 20 mg TID PO Last administered on 04/30/16 13:33; Start at 21:00 Multivitamins/ Calcium (Thera M Plus) 1 tab DAILY PO Last administered on 08:47; Start 04/29/16 at 09:00 Paroxetine HCl (Paxil) 40 mg DAILY PO Last administered on 04/30/16 08:48; Start 04/29/16 at 09:00 Potassium Chloride (Klor-Con) 20 meq DAILYWBKFT PO Last administered on 08:47; Start 04/29/16 at 08:00 Vancomycin HCl 125 mg [id number] PO Last administered on 04/30/16 13:32; Start at 21:00 Cholestyramine Resin (Questran Light) 4 gm DAILY PO Last administered on 13:32; Start 04/29/16 at 09:00 Lactobacillus Acidophilus (Bacid, Gin-Bid) 1 tab DAILY PO Last administered on 04/30/16 08:47; Start 04/29/16 at 09:00 Oxycodone HCl (Roxicodone) 5 mg PRN Q6HRS PRN PO PAIN Last administered on 04/30 12:00; Start 04/28/16 at 20:15 Morphine Sulfate 15 mg 15 mg 1X ONCE PO Last administered on 04/28/16 21:19; Start 04/28/16 at 20:15; Stop 04/28/16 at 20:16; Status DC Sodium Chloride (Iv Sodium Chloride 0.9% 500ml Bag) 500 ml @ 500 mls/hr 1X ONCE IV Last administered on 04/28/16 21:23; Start 04/28/16 at 21:15; Stop at 22:14; Status DC Carvedilol (Coreg) 3.125 mg BIDWMEALS PO Last administered on 04/30/16 08:48; Start 04/29/16 at 08:00 Furosemide (Lasix) 40 mg HS PO Last administered on 04/29/16 20:33; Start at 22:00 Gadobutrol (Gadavist) 6 mmol 1X ONCE IV Last administered on 04/29/16 09:30; Start 04/29/16 at 09:30; Stop 04/29/16 at 09:32; Status DC Active Scripts Active Reported Xanax (Alprazolam) 0.25 Mg Tablet 0.25 Mg PO PRN DAILY PRN Vancomycin HCl 125 Mg/2.5 Ml Syringe 125 Mg PO QID Pradaxa (Dabigatran Etexilate Mesylate) 150 Mg Capsule 150 Mg PO BID Potassium Chloride 10 Meq Capsule.er 20 Meq PO DAILY Paroxetine Hcl 40 Mg Tablet 40 Mg PO DAILY NICODERM CQ 14mg (Nicotine) 1 Each Patch.td24 1 Patch TP DAILY Multivitamins (Multivitamin) 1 Each Tablet 1 Tab PO DAILY Lisinopril 20 Mg Tablet 20 Mg PO BID Hydralazine Hcl 10 Mg Tablet 1 Tab PO BID Furosemide 40 Mg Tablet 40 Mg PO DAILY Questran Packet (Cholestyramine (With Sugar)) 4 Gm Powd.pack 4 Gm PO Carvedilol 6.25 Mg Tablet 1 Tab PO BID Baclofen 20 Mg Tablet 20 Mg PO TID Acidophilus (Lactobacillus Acidophilus) 1 Each Capsule 1 Each PO Vitals/I & O Vital Sign - Last 24 Hours 04/29/16 04/29/16 04/29/16 04/29/16 15:00 15:33 17:50 20:00 Temp 97.9 97.9 Pulse 89 89 Resp 16 B/P 120/70 120/70 Pulse Ox 91 O2 Delivery Room Air Room Air Room Air 04/29/16 04/29/16 04/29/16 04/29/16 20:25 20:33 21:33 23:00 Temp 97.4 98.1 97.4 98.1 Pulse 88 90 Resp 16 16 18 B/P 105/61 107/66 Pulse Ox 91 91 90 O2 Delivery Room Air Room Air Room Air O2 Flow Rate 92.0 92.0 92.0 04/30/16 04/30/16 04/30/16 04/30/16 01:07 02:07 03:00 07:00 Temp 98.2 98.1 98.2 98.1 Pulse 90 99 Resp 16 18 16 B/P 111/62 118/62 Pulse Ox 91 91 90 90 O2 Delivery Room Air Room Air Room Air O2 Flow Rate 92.0 92.0 04/30/16 04/30/16 04/30/16 04/30/16 08:00 08:46 08:48 09:51 Pulse 90 Resp 20 14 B/P 118/62 O2 Delivery Room Air Room Air Room Air 04/30/16 04/30/16 04/30/16 11:00 12:00 13:00 Temp 98.1 98.1 Pulse 72 Resp 16 16 16 B/P 110/63 Pulse Ox 90 O2 Delivery Room Air Room Air Room Air Intake and Output 04/29/16 04/29/16 04/30/16 15:00 23:00 07:00 Intake Total 0 ml 120 ml 120 ml Output Total 550 ml 325 ml Balance 0 ml -430 ml -205 ml NITIN CAMPBELL MD Apr 30, 2016 14:55
[2016-04-30 15:00] VITALS: BP 115/69
[2016-04-30] MEDS ORDERED: ERGOCALCIFEROL (VITAMIN D2) 50,000 UNIT CAPSULE PO SCH (15:30)
[2016-04-30 19:20] VITALS: BP 118/66
[2016-04-30] MEDS: FUROSEMIDE 40 MG TABLET PO SCH (21:30)
[2016-04-30] MEDS: traZODone 50 MG TABLET. PO SCH (21:31)
[2016-04-30 23:36] VITALS: BP 108/62
[2016-05-01 03:28] VITALS: BP 110/64
[2016-05-01 06:12] LABS: BASO # 0.1 x10^3/uL (0.0-0.2); BASO % 1 % (0-3); EOS % 4 % (0-3); HEMATOCRIT 40.9 % (36.0-47.0); HEMOGLOBIN 13.1 g/dL (12.0-15.5); LYMPH # 1.5 x10^3/uL (1.0-4.8); LYMPH % 14 % (24-48); MEAN CORPUSCULAR HEMOGLOBIN 29 pg (25-35); MEAN CORPUSCULAR HGB CONC 32 g/dL (31-37); MEAN CORPUSCULAR VOLUME 90 fL (79-100); MONO % 12 % (0-9); NEUT % 69 % (31-73); PLATELET COUNT 285 x10^3/uL (140-400); RED BLOOD COUNT 4.56 x10^6/uL (3.50-5.40); RED CELL DISTRIBUTION WIDTH 15.2 % (11.5-14.5); WHITE BLOOD COUNT 10.9 x10^3/uL (4.0-11.0)
[2016-05-01 06:37] LABS: CALCIUM 8.8 mg/dL (8.5-10.1); CREATININE 0.7 mg/dL (0.6-1.0); GFR 82.5; POTASSIUM 4.7 mmol/L (3.5-5.1)
[2016-05-01 07:00] VITALS: BP 108/66
[2016-05-01] MEDS: LACTOBACILLUS ACIDOPH & BULGAR 1 TABLET. PO SCH (08:57)
[2016-05-01] MEDS: VANCOMYCIN 125 MG/2.5 ML ORAL SOLUTION. PO SCH ×4 (08:57→20:51)
[2016-05-01] MEDS: POTASSIUM CHLORIDE 20 MEQ TABLET.ER. PO SCH (08:58)
[2016-05-01] MEDS: MULTIVITAMIN with MINERAL TABLET. PO SCH (08:58)
[2016-05-01] MEDS: BACLOFEN 10 MG TABLET PO SCH ×3 (08:58→20:50)
[2016-05-01] MEDS: PAROXETINE 20 MG TABLET. PO SCH (08:59)
[2016-05-01] MEDS: CHOLESTYRAMINE/ASPARTAME 4 GM PACKET PO SCH (08:59)
[2016-05-01] MEDS: NICOTINE 14MG PATCH. TD SCH (08:59)
[2016-05-01] MEDS: CARVEDILOL 6.25 MG TABLET PO SCH ×2 (09:00→17:31)
[2016-05-01] MEDS: HYDRALAZINE 10 MG TABLET PO SCH ×2 (09:00→20:51)
[2016-05-01 11:00] VITALS: BP 106/69
--- NOTE | 2016-05-01 12:36 | PDOC ---
PROGRESS NOTES Chief Complaint Chief Complaint MS exacerbation LE weakness, bilateral Left leg hematoma with pain related to oral anticoagulation. swelling on OSH imaging - hemodynamically stable htn HX C. diff. Thrombocytopenia was reported, normal here depression, NOS insomnia, anxiety, History of Present Illness History of Present Illness Clearly depressed Did not participate with pT LAbs hgb ok NO coags Off xarelto while here, hx DVT, (thats why was on AC), hx MS On vancomycin oral solution, Diarrhea? VEGA pending OPaites positive on UDS PLAN HArd to get anything from pt today, depressed Wanted to ask about details of her old DVT - maybe needs iVC filter now since has hematoma while on xarelto IS she having diarrhea? C diff not done but on vanc solution Await pT today - hopefully she will participate Imaging pf the left leg was done outside, NO reimaging here as hgb has been stable NEed to monitor this, no palpable hematoma on exam COnt to hold xarelto but might need to resume weeks after dc given hx dvt Needs to see psychiatrist for severe depression WIll attempt to converse these issues adrianna with her Tommy Rn Vitals Vitals Vital Signs Date Time Temp Pulse Resp B/P Pulse Ox O2 Delivery O2 Flow Rate FiO2 05/01/16 11:00 98.9 99 16 106/69 90 Room Air 98.9 Physical Exam General: Alert, Oriented X3, Cooperative, mild distress, moderate distress Heart: Regular rate, No murmurs Lungs: Clear Abdomen: Normal bowel sounds Extremities: No clubbing, Other (weakness bilat, diffuse) Skin: No rashes Labs LABS Laboratory Tests Test 05/01/16 05:25 White Blood Count 10.9x10^3/uL (4.0-11.0) Red Blood Count 4.56x10^6/uL (3.50-5.40) Hemoglobin 13.1g/dL (12.0-15.5) Hematocrit 40.9% (36.0-47.0) Mean Corpuscular Volume 90fL (79-100) Mean Corpuscular Hemoglobin 29pg (25-35) Mean Corpuscular Hemoglobin Concent 32g/dL (31-37) Red Cell Distribution Width 15.2% (11.5-14.5) Platelet Count 285x10^3/uL (140-400) Neutrophils (%) (Auto) 69% (31-73) Lymphocytes (%) (Auto) 14% (24-48) Monocytes (%) (Auto) 12% (0-9) Eosinophils (%) (Auto) 4% (0-3) Basophils (%) (Auto) 1% (0-3) Neutrophils # (Auto) 7.5x10^3uL (1.8-7.7) Lymphocytes # (Auto) 1.5x10^3/uL (1.0-4.8) Monocytes # (Auto) 1.3x10^3/uL (0.0-1.1) Eosinophils # (Auto) 0.4x10^3/uL (0.0-0.7) Basophils # (Auto) 0.1x10^3/uL (0.0-0.2) Sodium Level 135mmol/L (136-145) Potassium Level 4.7mmol/L (3.5-5.1) Chloride Level 100mmol/L (98-107) Carbon Dioxide Level 27mmol/L (21-32) Anion Gap 8 (6-14) Blood Urea Nitrogen 23mg/dL (7-20) Creatinine 0.7mg/dL (0.6-1.0) Estimated GFR (Cockcroft-Gault) 82.5 Glucose Level 100mg/dL (70-99) Calcium Level 8.8mg/dL (8.5-10.1) Comment Review of Relevant I have reviewed the following items sridevi (where applicable) has been applied. Labs Laboratory Tests Test 04/30/16 05:05 05/01/16 05:25 White Blood Count 12.9x10^3/uL (4.0-11.0) 10.9x10^3/uL (4.0-11.0) Red Blood Count 4.76x10^6/uL (3.50-5.40) 4.56x10^6/uL (3.50-5.40) Hemoglobin 13.6g/dL (12.0-15.5) 13.1g/dL (12.0-15.5) Hematocrit 41.7% (36.0-47.0) 40.9% (36.0-47.0) Mean Corpuscular Volume 88fL (79-100) 90fL (79-100) Mean Corpuscular Hemoglobin 29pg (25-35) 29pg (25-35) Mean Corpuscular Hemoglobin Concent 33g/dL (31-37) 32g/dL (31-37) Red Cell Distribution Width 15.3% (11.5-14.5) 15.2% (11.5-14.5) Platelet Count 302x10^3/uL (140-400) 285x10^3/uL (140-400) Neutrophils (%) (Auto) 75% (31-73) 69% (31-73) Lymphocytes (%) (Auto) 9% (24-48) 14% (24-48) Monocytes (%) (Auto) 11% (0-9) 12% (0-9) Eosinophils (%) (Auto) 4% (0-3) 4% (0-3) Basophils (%) (Auto) 1% (0-3) 1% (0-3) Neutrophils # (Auto) 9.7x10^3uL (1.8-7.7) 7.5x10^3uL (1.8-7.7) Lymphocytes # (Auto) 1.2x10^3/uL (1.0-4.8) 1.5x10^3/uL (1.0-4.8) Monocytes # (Auto) 1.4x10^3/uL (0.0-1.1) 1.3x10^3/uL (0.0-1.1) Eosinophils # (Auto) 0.5x10^3/uL (0.0-0.7) 0.4x10^3/uL (0.0-0.7) Basophils # (Auto) 0.1x10^3/uL (0.0-0.2) 0.1x10^3/uL (0.0-0.2) Sodium Level 136mmol/L (136-145) 135mmol/L (136-145) Potassium Level 4.6mmol/L (3.5-5.1) 4.7mmol/L (3.5-5.1) Chloride Level 102mmol/L (98-107) 100mmol/L (98-107) Carbon Dioxide Level 25mmol/L (21-32) 27mmol/L (21-32) Anion Gap 9 (6-14) 8 (6-14) Blood Urea Nitrogen 30mg/dL (7-20) 23mg/dL (7-20) Creatinine 0.6mg/dL (0.6-1.0) 0.7mg/dL (0.6-1.0) Estimated GFR (Cockcroft-Gault) 98.5 82.5 Glucose Level 109mg/dL (70-99) 100mg/dL (70-99) Calcium Level 8.5mg/dL (8.5-10.1) 8.8mg/dL (8.5-10.1) Laboratory Tests Test 05/01/16 05:25 White Blood Count 10.9x10^3/uL (4.0-11.0) Red Blood Count 4.56x10^6/uL (3.50-5.40) Hemoglobin 13.1g/dL (12.0-15.5) Hematocrit 40.9% (36.0-47.0) Mean Corpuscular Volume 90fL (79-100) Mean Corpuscular Hemoglobin 29pg (25-35) Mean Corpuscular Hemoglobin Concent 32g/dL (31-37) Red Cell Distribution Width 15.2% (11.5-14.5) Platelet Count 285x10^3/uL (140-400) Neutrophils (%) (Auto) 69% (31-73) Lymphocytes (%) (Auto) 14% (24-48) Monocytes (%) (Auto) 12% (0-9) Eosinophils (%) (Auto) 4% (0-3) Basophils (%) (Auto) 1% (0-3) Neutrophils # (Auto) 7.5x10^3uL (1.8-7.7) Lymphocytes # (Auto) 1.5x10^3/uL (1.0-4.8) Monocytes # (Auto) 1.3x10^3/uL (0.0-1.1) Eosinophils # (Auto) 0.4x10^3/uL (0.0-0.7) Basophils # (Auto) 0.1x10^3/uL (0.0-0.2) Sodium Level 135mmol/L (136-145) Potassium Level 4.7mmol/L (3.5-5.1) Chloride Level 100mmol/L (98-107) Carbon Dioxide Level 27mmol/L (21-32) Anion Gap 8 (6-14) Blood Urea Nitrogen 23mg/dL (7-20) Creatinine 0.7mg/dL (0.6-1.0) Estimated GFR (Cockcroft-Gault) 82.5 Glucose Level 100mg/dL (70-99) Calcium Level 8.8mg/dL (8.5-10.1) Medications Current Medications Acetaminophen (Tylenol) 325 mg PRN Q6HRS PRN PO MILD PAIN / TEMP; Start at 14:15 Acetaminophen/ Hydrocodone Bitart (Lortab 5/325) 1 tab PRN Q6HRS PRN PO MODERATE TO SEVERE PAIN Last administered on 04/30/16 23:59; Start 04/28/16 at 14:15 Hydralazine HCl (Apresoline) 10 mg PRN Q4HRS PRN IVP ELEVATED BP, SEE COMMENTS ; Start 04/28/16 at 14:15 Ondansetron HCl (Zofran) 4 mg PRN Q8HRS PRN IV NAUSEA/VOMITING; Start 04/28/16 at 14:15 Albuterol Sulfate (Ventolin Neb Soln) 2.5 mg PRN Q4HRS PRN NEB SHORTNESS OF BREATH; Start 04/28/16 at 14:15 Alprazolam (Xanax) 0.25 mg PRN DAILY PRN PO ANXIETY / AGITATION; Start at 18:30 Carvedilol (Coreg) 6.25 mg BIDWMEALS PO ; Start 04/28/16 at 19:00; Stop at 21:14; Status DC Furosemide (Lasix) 40 mg DAILY PO ; Start 04/29/16 at 09:00; Stop 04/29/16 at 09 :00; Status DC Hydralazine HCl (Apresoline) 10 mg BID PO Last administered on 05/01/16 09:00 ; Start 04/28/16 at 21:00 Lisinopril (Prinivil) 20 mg BID PO ; Start 04/28/16 at 21:00; Stop 04/28/16 at 21:13; Status DC Nicotine (Nicoderm Cq 14mg) 1 patch DAILY TD Last administered on 05/01/16 08: 59; Start 04/29/16 at 09:00 Baclofen (Lioresal) 20 mg TID PO Last administered on 05/01/16 08:58; Start at 21:00 Multivitamins/ Calcium (Thera M Plus) 1 tab DAILY PO Last administered on 08:58; Start 04/29/16 at 09:00 Paroxetine HCl (Paxil) 40 mg DAILY PO Last administered on 05/01/16 08:59; Start 04/29/16 at 09:00 Potassium Chloride (Klor-Con) 20 meq DAILYWBKFT PO Last administered on 08:58; Start 04/29/16 at 08:00 Vancomycin HCl 125 mg [id number] PO Last administered on 05/01/16 08:57; Start at 21:00 Cholestyramine Resin (Questran Light) 4 gm DAILY PO Last administered on 08:59; Start 04/29/16 at 09:00 Lactobacillus Acidophilus (Bacid, Gin-Bid) 1 tab DAILY PO Last administered on 05/01/16 08:57; Start 04/29/16 at 09:00 Oxycodone HCl (Roxicodone) 5 mg PRN Q6HRS PRN PO BREAKTRHOUGH PAIN Last administered on 04/30/16 21:31; Start 04/28/16 at 20:15 Morphine Sulfate 15 mg 15 mg 1X ONCE PO Last administered on 04/28/16 21:19; Start 04/28/16 at 20:15; Stop 04/28/16 at 20:16; Status DC Sodium Chloride (Iv Sodium Chloride 0.9% 500ml Bag) 500 ml @ 500 mls/hr 1X ONCE IV Last administered on 04/28/16 21:23; Start 04/28/16 at 21:15; Stop at 22:14; Status DC Carvedilol (Coreg) 3.125 mg BIDWMEALS PO Last administered on 05/01/16 09:00; Start 04/29/16 at 08:00 Furosemide (Lasix) 40 mg HS PO Last administered on 04/30/16 21:30; Start at 22:00 Gadobutrol (Gadavist) 6 mmol 1X ONCE IV Last administered on 04/29/16 09:30; Start 04/29/16 at 09:30; Stop 04/29/16 at 09:32; Status DC Trazodone HCl (Desyrel) 50 mg QHS PO Last administered on 04/30/16 21:31; Start 04/30/16 at 21:00 Ergocalciferol (Vitamin D2) 50,000 unit WEEKLY PO Last administered on 16:06; Start 04/30/16 at 15:30 Active Scripts Active Reported Xanax (Alprazolam) 0.25 Mg Tablet 0.25 Mg PO PRN DAILY PRN Vancomycin HCl 125 Mg/2.5 Ml Syringe 125 Mg PO QID Pradaxa (Dabigatran Etexilate Mesylate) 150 Mg Capsule 150 Mg PO BID Potassium Chloride 10 Meq Capsule.er 20 Meq PO DAILY Paroxetine Hcl 40 Mg Tablet 40 Mg PO DAILY NICODERM CQ 14mg (Nicotine) 1 Each Patch.td24 1 Patch TP DAILY Multivitamins (Multivitamin) 1 Each Tablet 1 Tab PO DAILY Lisinopril 20 Mg Tablet 20 Mg PO BID Hydralazine Hcl 10 Mg Tablet 1 Tab PO BID Furosemide 40 Mg Tablet 40 Mg PO DAILY Questran Packet (Cholestyramine (With Sugar)) 4 Gm Powd.pack 4 Gm PO Carvedilol 6.25 Mg Tablet 1 Tab PO BID Baclofen 20 Mg Tablet 20 Mg PO TID Acidophilus (Lactobacillus Acidophilus) 1 Each Capsule 1 Each PO Vitals/I & O Vital Sign - Last 24 Hours 04/30/16 04/30/16 04/30/16 04/30/16 15:00 16:07 16:08 19:20 Temp 97.8 98.7 97.8 98.7 Pulse 68 72 82 Resp 16 14 18 B/P 115/69 110/63 118/66 Pulse Ox 90 90 O2 Delivery Room Air Room Air Room Air 04/30/16 04/30/16 04/30/16 04/30/16 20:05 21:31 21:31 22:31 Pulse 82 Resp 16 16 B/P 118/66 O2 Delivery Room Air Room Air Room Air 04/30/16 04/30/16 05/01/16 05/01/16 23:36 23:59 00:59 03:28 Temp 97.9 98.1 97.9 98.1 Pulse 96 88 Resp 18 18 16 18 B/P 108/62 110/64 Pulse Ox 90 91 O2 Delivery Room Air Room Air Room Air Room Air 05/01/16 05/01/16 05/01/16 05/01/16 07:00 08:15 09:00 09:00 Temp 99.3 99.3 Pulse 103 103 103 Resp 16 B/P 108/66 108/66 108/66 Pulse Ox 89 O2 Delivery Room Air Room Air 05/01/16 11:00 Temp 98.9 98.9 Pulse 99 Resp 16 B/P 106/69 Pulse Ox 90 O2 Delivery Room Air Intake and Output 04/30/16 04/30/16 05/01/16 15:00 23:00 07:00 Intake Total 240 ml Output Total 400 ml 500 ml Balance -400 ml -260 ml NORMA MOELLER MD May 01, 2016 12:36
[2016-05-01] MEDS: HYDROCODONE/APAP 5/325MG TABLET. PO PRN ×2 (14:01→22:27)
[2016-05-01 15:00] VITALS: BP 107/59
[2016-05-01] MEDS: OXYCODONE IR 5 MG TABLET. PO PRN (17:30)
[2016-05-01 19:20] VITALS: BP 110/58
[2016-05-01] MEDS: FUROSEMIDE 40 MG TABLET PO SCH (20:51)
[2016-05-01] MEDS: traZODone 50 MG TABLET. PO SCH (20:51)
[2016-05-01 23:18] VITALS: BP 110/60
[2016-05-02 03:17] VITALS: BP 112/64
[2016-05-02 05:14] LABS: BASO # 0.1 x10^3/uL (0.0-0.2); BASO % 1 % (0-3); EOS % 5 % (0-3); HEMATOCRIT 37.9 % (36.0-47.0); HEMOGLOBIN 12.4 g/dL (12.0-15.5); LYMPH # 1.6 x10^3/uL (1.0-4.8); LYMPH % 15 % (24-48); MEAN CORPUSCULAR HEMOGLOBIN 29 pg (25-35); MEAN CORPUSCULAR HGB CONC 33 g/dL (31-37); MEAN CORPUSCULAR VOLUME 89 fL (79-100); MONO % 11 % (0-9); NEUT % 69 % (31-73); PLATELET COUNT 299 x10^3/uL (140-400); RED BLOOD COUNT 4.28 x10^6/uL (3.50-5.40); WHITE BLOOD COUNT 10.8 x10^3/uL (4.0-11.0)
[2016-05-02 05:20] LABS: INR 1.1 (0.8-1.1); PROTHROMBIN TIME PATIENT 13.9 SEC (11.7-14.0)
[2016-05-02 05:57] LABS: CALCIUM 8.7 mg/dL (8.5-10.1); CREATININE 0.6 mg/dL (0.6-1.0); GFR 98.5; POTASSIUM 4.4 mmol/L (3.5-5.1)
[2016-05-02 07:00] VITALS: BP 119/62
[2016-05-02] MEDS: VANCOMYCIN 125 MG/2.5 ML ORAL SOLUTION. PO SCH ×4 (09:15→20:28)
[2016-05-02] MEDS: HYDRALAZINE 10 MG TABLET PO SCH ×2 (09:15→20:29)
[2016-05-02] MEDS: PAROXETINE 20 MG TABLET. PO SCH (09:15)
[2016-05-02] MEDS: NICOTINE 14MG PATCH. TD SCH (09:15)
[2016-05-02] MEDS: HYDROCODONE/APAP 5/325MG TABLET. PO PRN (09:16)
[2016-05-02] MEDS: POTASSIUM CHLORIDE 20 MEQ TABLET.ER. PO SCH (09:16)
[2016-05-02] MEDS: LACTOBACILLUS ACIDOPH & BULGAR 1 TABLET. PO SCH (09:16)
[2016-05-02] MEDS: BACLOFEN 10 MG TABLET PO SCH ×3 (09:16→20:25)
[2016-05-02] MEDS: MULTIVITAMIN with MINERAL TABLET. PO SCH (09:16)
[2016-05-02] MEDS: CARVEDILOL 6.25 MG TABLET PO SCH ×2 (09:17→17:00)
[2016-05-02] MEDS: CHOLESTYRAMINE/ASPARTAME 4 GM PACKET PO SCH (09:17)
[2016-05-02 11:00] VITALS: BP 107/57
[2016-05-02] MEDS: OXYCODONE IR 5 MG TABLET. PO PRN ×2 (12:24→20:24)
--- NOTE | 2016-05-02 12:29 | PDOC ---
PROGRESS NOTES Chief Complaint Chief Complaint MS exacerbation LE weakness, bilateral Left leg hematoma with pain related to oral anticoagulation. swelling on OSH imaging htn HX C. diff, recurrent, on vanco po chronically Thrombocytopenia was reported, normal here depression, NOS insomnia, anxiety bl lower ext chronically DVT, with IVC filter plan: 1. SW consult for SNF 2. CONT ptot , HOPE pt will cooperate 3. no sx intervention for hematoma , locally heat pads as per ortho 4. on paxil, add mirtazapine 5. hope to dc to snf tmr cont vanco po qid, chronically need psych eval as outpt i talked to dr. Johnson, agreed to resume pradaxa History of Present Illness History of Present Illness Clearly depressed, looks ok, but c/o unconfortable and cannot tell me why able to move from bed to wheel chair at assisted living facility, but not here Did not participate with pT for the past 3 days, agreed to me today, but refused to PT again LAbs hgb ok NO coags Off xarelto while here, hx DVT, (thats why was on AC), hx MS On vancomycin oral solution, for 1 year for chronic cdiff VEGA pending OPaites positive on UDS Vitals Vitals Vital Signs Date Time Temp Pulse Resp B/P Pulse Ox O2 Delivery O2 Flow Rate FiO2 05/02/16 11:00 98.8 86 16 107/57 91 Nasal Cannula 1.0 98.8 Physical Exam General: Alert, Oriented X3, Cooperative, mild distress, moderate distress Heart: Regular rate, No murmurs Lungs: Clear Abdomen: Normal bowel sounds Extremities: No clubbing, Other (weakness bilat, diffuse. bl leg/feet edema, left side worse) Skin: No rashes Labs LABS Laboratory Tests Test 05/02/16 03:15 White Blood Count 10.8x10^3/uL (4.0-11.0) Red Blood Count 4.28x10^6/uL (3.50-5.40) Hemoglobin 12.4g/dL (12.0-15.5) Hematocrit 37.9% (36.0-47.0) Mean Corpuscular Volume 89fL (79-100) Mean Corpuscular Hemoglobin 29pg (25-35) Mean Corpuscular Hemoglobin Concent 33g/dL (31-37) Red Cell Distribution Width 15.0% (11.5-14.5) Platelet Count 299x10^3/uL (140-400) Neutrophils (%) (Auto) 69% (31-73) Lymphocytes (%) (Auto) 15% (24-48) Monocytes (%) (Auto) 11% (0-9) Eosinophils (%) (Auto) 5% (0-3) Basophils (%) (Auto) 1% (0-3) Neutrophils # (Auto) 7.5x10^3uL (1.8-7.7) Lymphocytes # (Auto) 1.6x10^3/uL (1.0-4.8) Monocytes # (Auto) 1.2x10^3/uL (0.0-1.1) Eosinophils # (Auto) 0.5x10^3/uL (0.0-0.7) Basophils # (Auto) 0.1x10^3/uL (0.0-0.2) Prothrombin Time 13.9SEC (11.7-14.0) Prothromb Time International Ratio 1.1 (0.8-1.1) Sodium Level 136mmol/L (136-145) Potassium Level 4.4mmol/L (3.5-5.1) Chloride Level 101mmol/L (98-107) Carbon Dioxide Level 27mmol/L (21-32) Anion Gap 8 (6-14) Blood Urea Nitrogen 17mg/dL (7-20) Creatinine 0.6mg/dL (0.6-1.0) Estimated GFR (Cockcroft-Gault) 98.5 Glucose Level 84mg/dL (70-99) Calcium Level 8.7mg/dL (8.5-10.1) Review of Systems Review of Systems no fever, chills, sob or chest pain Comment Review of Relevant I have reviewed the following items sridevi (where applicable) has been applied. Labs Laboratory Tests Test 05/01/16 05:25 05/02/16 03:15 White Blood Count 10.9x10^3/uL (4.0-11.0) 10.8x10^3/uL (4.0-11.0) Red Blood Count 4.56x10^6/uL (3.50-5.40) 4.28x10^6/uL (3.50-5.40) Hemoglobin 13.1g/dL (12.0-15.5) 12.4g/dL (12.0-15.5) Hematocrit 40.9% (36.0-47.0) 37.9% (36.0-47.0) Mean Corpuscular Volume 90fL (79-100) 89fL (79-100) Mean Corpuscular Hemoglobin 29pg (25-35) 29pg (25-35) Mean Corpuscular Hemoglobin Concent 32g/dL (31-37) 33g/dL (31-37) Red Cell Distribution Width 15.2% (11.5-14.5) 15.0% (11.5-14.5) Platelet Count 285x10^3/uL (140-400) 299x10^3/uL (140-400) Neutrophils (%) (Auto) 69% (31-73) 69% (31-73) Lymphocytes (%) (Auto) 14% (24-48) 15% (24-48) Monocytes (%) (Auto) 12% (0-9) 11% (0-9) Eosinophils (%) (Auto) 4% (0-3) 5% (0-3) Basophils (%) (Auto) 1% (0-3) 1% (0-3) Neutrophils # (Auto) 7.5x10^3uL (1.8-7.7) 7.5x10^3uL (1.8-7.7) Lymphocytes # (Auto) 1.5x10^3/uL (1.0-4.8) 1.6x10^3/uL (1.0-4.8) Monocytes # (Auto) 1.3x10^3/uL (0.0-1.1) 1.2x10^3/uL (0.0-1.1) Eosinophils # (Auto) 0.4x10^3/uL (0.0-0.7) 0.5x10^3/uL (0.0-0.7) Basophils # (Auto) 0.1x10^3/uL (0.0-0.2) 0.1x10^3/uL (0.0-0.2) Sodium Level 135mmol/L (136-145) 136mmol/L (136-145) Potassium Level 4.7mmol/L (3.5-5.1) 4.4mmol/L (3.5-5.1) Chloride Level 100mmol/L (98-107) 101mmol/L (98-107) Carbon Dioxide Level 27mmol/L (21-32) 27mmol/L (21-32) Anion Gap 8 (6-14) 8 (6-14) Blood Urea Nitrogen 23mg/dL (7-20) 17mg/dL (7-20) Creatinine 0.7mg/dL (0.6-1.0) 0.6mg/dL (0.6-1.0) Estimated GFR (Cockcroft-Gault) 82.5 98.5 Glucose Level 100mg/dL (70-99) 84mg/dL (70-99) Calcium Level 8.8mg/dL (8.5-10.1) 8.7mg/dL (8.5-10.1) Prothrombin Time 13.9SEC (11.7-14.0) Prothromb Time International Ratio 1.1 (0.8-1.1) Laboratory Tests Test 05/02/16 03:15 White Blood Count 10.8x10^3/uL (4.0-11.0) Red Blood Count 4.28x10^6/uL (3.50-5.40) Hemoglobin 12.4g/dL (12.0-15.5) Hematocrit 37.9% (36.0-47.0) Mean Corpuscular Volume 89fL (79-100) Mean Corpuscular Hemoglobin 29pg (25-35) Mean Corpuscular Hemoglobin Concent 33g/dL (31-37) Red Cell Distribution Width 15.0% (11.5-14.5) Platelet Count 299x10^3/uL (140-400) Neutrophils (%) (Auto) 69% (31-73) Lymphocytes (%) (Auto) 15% (24-48) Monocytes (%) (Auto) 11% (0-9) Eosinophils (%) (Auto) 5% (0-3) Basophils (%) (Auto) 1% (0-3) Neutrophils # (Auto) 7.5x10^3uL (1.8-7.7) Lymphocytes # (Auto) 1.6x10^3/uL (1.0-4.8) Monocytes # (Auto) 1.2x10^3/uL (0.0-1.1) Eosinophils # (Auto) 0.5x10^3/uL (0.0-0.7) Basophils # (Auto) 0.1x10^3/uL (0.0-0.2) Prothrombin Time 13.9SEC (11.7-14.0) Prothromb Time International Ratio 1.1 (0.8-1.1) Sodium Level 136mmol/L (136-145) Potassium Level 4.4mmol/L (3.5-5.1) Chloride Level 101mmol/L (98-107) Carbon Dioxide Level 27mmol/L (21-32) Anion Gap 8 (6-14) Blood Urea Nitrogen 17mg/dL (7-20) Creatinine 0.6mg/dL (0.6-1.0) Estimated GFR (Cockcroft-Gault) 98.5 Glucose Level 84mg/dL (70-99) Calcium Level 8.7mg/dL (8.5-10.1) Medications Current Medications Acetaminophen (Tylenol) 325 mg PRN Q6HRS PRN PO MILD PAIN / TEMP; Start at 14:15 Acetaminophen/ Hydrocodone Bitart (Lortab 5/325) 1 tab PRN Q6HRS PRN PO MODERATE TO SEVERE PAIN Last administered on 05/02/16t 09:16; Start 04/28/16 at 14:15 Hydralazine HCl (Apresoline) 10 mg PRN Q4HRS PRN IVP ELEVATED BP, SEE COMMENTS ; Start 04/28/16 at 14:15 Ondansetron HCl (Zofran) 4 mg PRN Q8HRS PRN IV NAUSEA/VOMITING; Start 04/28/16 at 14:15 Albuterol Sulfate (Ventolin Neb Soln) 2.5 mg PRN Q4HRS PRN NEB SHORTNESS OF BREATH; Start 04/28/16 at 14:15 Alprazolam (Xanax) 0.25 mg PRN DAILY PRN PO ANXIETY / AGITATION; Start at 18:30 Carvedilol (Coreg) 6.25 mg BIDWMEALS PO ; Start 04/28/16 at 19:00; Stop at 21:14; Status DC Furosemide (Lasix) 40 mg DAILY PO ; Start 04/29/16 at 09:00; Stop 04/29/16 at 09 :00; Status DC Hydralazine HCl (Apresoline) 10 mg BID PO Last administered on 05/02/16 09:15 ; Start 04/28/16 at 21:00 Lisinopril (Prinivil) 20 mg BID PO ; Start 04/28/16 at 21:00; Stop 04/28/16 at 21:13; Status DC Nicotine (Nicoderm Cq 14mg) 1 patch DAILY TD Last administered on 05/02/16 09: 15; Start 04/29/16 at 09:00 Baclofen (Lioresal) 20 mg TID PO Last administered on 05/02/16 09:16; Start at 21:00 Multivitamins/ Calcium (Thera M Plus) 1 tab DAILY PO Last administered on 09:16; Start 04/29/16 at 09:00 Paroxetine HCl (Paxil) 40 mg DAILY PO Last administered on 05/02/16 09:15; Start 04/29/16 at 09:00 Potassium Chloride (Klor-Con) 20 meq [id number] PO Last administered on 09:16; Start 04/29/16 at 08:00 Vancomycin HCl 125 mg [id number] PO Last administered on 05/02/16 09:15; Start at 21:00 Cholestyramine Resin (Questran Light) 4 gm DAILY PO Last administered on 09:17; Start 04/29/16 at 09:00 Lactobacillus Acidophilus (Bacid, Gin-Bid) 1 tab DAILY PO Last administered on 05/02/16 09:16; Start 04/29/16 at 09:00 Oxycodone HCl (Roxicodone) 5 mg PRN Q6HRS PRN PO BREAKTRHOUGH PAIN Last administered on 05/01/16 17:30; Start 04/28/16 at 20:15 Morphine Sulfate 15 mg 15 mg 1X ONCE PO Last administered on 04/28/16 21:19; Start 04/28/16 at 20:15; Stop 04/28/16 at 20:16; Status DC Sodium Chloride (Iv Sodium Chloride 0.9% 500ml Bag) 500 ml @ 500 mls/hr 1X ONCE IV Last administered on 04/28/16 21:23; Start 04/28/16 at 21:15; Stop at 22:14; Status DC Carvedilol (Coreg) 3.125 mg BIDWMEALS PO Last administered on 05/02/16 09:17; Start 04/29/16 at 08:00 Furosemide (Lasix) 40 mg HS PO Last administered on 05/01/16 20:51; Start at 22:00 Gadobutrol (Gadavist) 6 mmol 1X ONCE IV Last administered on 04/29/16 09:30; Start 04/29/16 at 09:30; Stop 04/29/16 at 09:32; Status DC Trazodone HCl (Desyrel) 50 mg QHS PO Last administered on 05/01/16 20:51; Start 04/30/16 at 21:00 Ergocalciferol (Vitamin D2) 50,000 unit WEEKLY PO Last administered on 16:06; Start 04/30/16 at 15:30 Active Scripts Active Reported Xanax (Alprazolam) 0.25 Mg Tablet 0.25 Mg PO PRN DAILY PRN Vancomycin HCl 125 Mg/2.5 Ml Syringe 125 Mg PO QID Pradaxa (Dabigatran Etexilate Mesylate) 150 Mg Capsule 150 Mg PO BID Potassium Chloride 10 Meq Capsule.er 20 Meq PO DAILY Paroxetine Hcl 40 Mg Tablet 40 Mg PO DAILY NICODERM CQ 14mg (Nicotine) 1 Each Patch.td24 1 Patch TP DAILY Multivitamins (Multivitamin) 1 Each Tablet 1 Tab PO DAILY Lisinopril 20 Mg Tablet 20 Mg PO BID Hydralazine Hcl 10 Mg Tablet 1 Tab PO BID Furosemide 40 Mg Tablet 40 Mg PO DAILY Questran Packet (Cholestyramine (With Sugar)) 4 Gm Powd.pack 4 Gm PO Carvedilol 6.25 Mg Tablet 1 Tab PO BID Baclofen 20 Mg Tablet 20 Mg PO TID Acidophilus (Lactobacillus Acidophilus) 1 Each Capsule 1 Each PO Vitals/I & O Vital Sign - Last 24 Hours 05/01/16 05/01/16 05/01/16 05/01/16 14:01 15:00 17:30 17:31 Temp 98.8 98.8 Pulse 87 87 Resp 22 B/P 107/59 107/59 Pulse Ox 91 O2 Delivery Room Air Room Air Room Air 05/01/16 05/01/16 05/01/16 05/01/16 18:30 19:20 19:40 20:51 Temp 99.3 99.3 Pulse 82 82 Resp 18 B/P 110/58 110/58 Pulse Ox 90 O2 Delivery Room Air Room Air Room Air 05/01/16 05/01/16 05/01/16 05/02/16 22:27 23:18 23:27 03:17 Temp 98.4 98.4 98.4 98.4 Pulse 81 80 Resp 18 18 18 18 B/P 110/60 112/64 Pulse Ox 92 92 O2 Delivery Room Air Room Air Room Air 05/02/16 05/02/16 05/02/16 05/02/16 07:00 09:15 09:16 09:17 Temp 98.1 98.1 Pulse 94 94 94 Resp 12 B/P 119/62 119/62 119/62 Pulse Ox 95 O2 Delivery Nasal Cannula Nasal Cannula O2 Flow Rate 1.0 1.0 05/02/16 05/02/16 10:15 11:00 Temp 98.8 98.8 Pulse 86 Resp 16 B/P 107/57 Pulse Ox 91 O2 Delivery Nasal Cannula Nasal Cannula O2 Flow Rate 2.0 1.0 Intake and Output 05/01/16 05/01/16 05/02/16 15:00 23:00 07:00 Intake Total 360 ml Output Total 750 ml 650 ml Balance -750 ml -290 ml SETH CHRISTY MD May 02, 2016 12:29
--- NOTE | 2016-05-02 12:36 | RAD ---
Exam performed: Bilateral lower extremity venous Doppler. History: History of bilateral DVT recent left leg hematoma. Date of service: 05/02/16. Comparison: Bilateral lower extremity venous Doppler from 02-13. Technique: Real-time grayscale, color-flow, duplex Doppler and spectral analysis of both lower extremity deep venous system is performed and images are obtained. Findings: Extensive occlusive clots are seen in bilateral common, superficial and popliteal veins. The calf veins are poorly identified, however there clot seen in the evaluated portions of the calf veins. Bilateral peroneal, left posterior tibial veins are not well seen. There is also a clot in the right greater saphenous vein Note is made of a large left thigh hematoma measuring 8.6 x 2.0 x 4.2 cm. Impression: 1. Extensive bilateral DVT involving both common, superficial and popliteal veins as well as visualized calf veins. The appearance appears worsened as compared to the previous venous Doppler exam which also demonstrated bilateral DVT. 2. Large left thigh hematoma
[2016-05-02 15:00] VITALS: BP 117/67
[2016-05-02] MEDS ORDERED: ANTI-COAG MONITOR BY PHARMACY. MC PRN (15:30)
--- NOTE | 2016-05-02 15:38 | PDOC ---
PROGRESS NOTES Assessment Assessment Worsening of chronic paraplegia. Chronic urinary incontinence x 5 years.. Chronic LE weakness x 5 years. large left thigh hematoma, 8.6 x 2 x 4.2 cm. Bilateral LE DVT. Seizure, hx Possible stroke in 09/16. Smoking Drinking MS x 22 years per her statement but not showed on MRI in 2015. Questionable MS. Narcotic use. RECOMMENDATIONS/PLAN: Treat medical diseases. Cannot perform LP on anticoagulant. Repeat brain MRI w/wo contrast in a fe months. OT/PT Rehab. Brain MRI and C-spine MRI w/wo contrast on 04/29: No MS conformed. No new lesion. Small vessel disease. HISTORY OF THE PRESENT ILLNESS: 70-y-old female patient stated that she has been having MS for 22 years. She said she had flare-up in the past years, but became persistent paraplegia and wheelchair bound sometimes for about 5 years. She stated she was able to mobile a week ago, but totally paraplegic since last Monday. She has been using [facility] for 5 years. She has not received any MS treatment. She said she has not seen Neurology before. She had brain MRI in 2015 which did not show evidence of MS. PAST MEDICAL HISTORY: Please see above. PAST SURGERY HISTORY: No major surgery recently. ALLERGY: Unknown MEDICATIONS: Refer to [facility] FAMILY HISTORY: Non contributory. SOCIAL HISTORY: Denies illicit drug use. She smokes 1 pack of cigarettes a day for about 40 years, then decreased 1 pack for 2 days. She drinks alcohol from time to time. REVIEW OF SYSTEMS: Constitutional: Malnutrition. Head: No recent traumatic brain or head injury. Skin: No edema, or rash. Ear: No infection, tinnitus. Eyes: No vision loss or color blindness. Nose: No bleeding or purulent discharges. Hearing: No hearing decrease. Neck: No injury. Breast: No history of cancer, masses,or discharges. Cardiac: No ID, arrhythmia. Pulmonary: No COPD. GI: No GI ulcer, GI bleeding. Urinary/genital: incontinence. Endocrinologic: No cousin face, craniofacial dysmorphism, polydactyly, goiter. Skeletomuscular: Generalized weakness. Neurological: see HP. Psychiatric: Smoking, longstanding Otherwise, not [id number] review of systems. PHYSICAL EXAMINATION: General appearance is in subacute on chronic distress. HEENT: Normocephalic and nontraumatic. Eyes, nose, ears, and throat are unremarkable. Neck is supple. No lymphadenopathy. No bruits are heard over the carotid artery. No crepitus. Cardiovascular: S1, S2, regular rate and rhythm. Pulmonary: Clear to auscultation bilaterally. Abdomen: Bowel sounds are positive. Extremities: No rash, lesions. Edema noted in LE. No restriction of range of motion in UE, paraplegic in LE NEUROLOGICAL EXAMINATION: Alert Oriented to time, place and person. PERRL. EOMI. CN: no focal findings. Muscle tone: fluctuated. Muscle strength: 4 UE, 1-2 LE DTR: 1+ UE, 0 at knee Plantar reflex: No response bilaterally Gait: Unable to walk. Sensory exam: no acute abnormal findings. No obvious cerebellar signs elicited. F-T-N test slow and not accurate. Objective Objective Vital Signs Date Time Temp Pulse Resp B/P Pulse Ox O2 Delivery O2 Flow Rate FiO2 05/02/16 12:24 Nasal Cannula 1.0 05/02/16 11:00 98.8 86 16 107/57 91 98.8 Intake and Output 05/02/16 07:00 Intake Total 360 ml Output Total 1400 ml Balance -1040 ml Intake Oral 360 ml Output Urine Total 1400 ml # Bowel Movements 3 Vitals Signs Vitals VS - Last 72 Hours, by Label Date Time Temp Pulse Resp B/P Pulse Ox O2 Delivery O2 Flow Rate FiO2 05/02/16 12:24 Nasal Cannula 1.0 05/02/16 11:00 98.8 86 16 107/57 91 Nasal Cannula 1.0 98.8 05/02/16 10:15 Nasal Cannula 2.0 05/02/16 09:17 94 119/62 05/02/16 09:16 Nasal Cannula 1.0 05/02/16 09:15 94 119/62 05/02/16 07:00 98.1 94 12 119/62 95 Nasal Cannula 1.0 98.1 05/02/16 03:17 98.4 80 18 112/64 92 Room Air 98.4 05/01/16 23:27 18 05/01/16 23:18 98.4 81 18 110/60 92 Room Air 98.4 05/01/16 22:27 18 Room Air 05/01/16 20:51 82 110/58 05/01/16 19:40 Room Air 05/01/16 19:20 99.3 82 18 110/58 90 Room Air 99.3 05/01/16 18:30 Room Air 05/01/16 17:31 87 107/59 05/01/16 17:30 Room Air 05/01/16 15:00 98.8 87 22 107/59 91 Room Air 98.8 05/01/16 14:01 Room Air 05/01/16 11:00 98.9 99 16 106/69 90 Room Air 98.9 05/01/16 09:00 103 108/66 05/01/16 09:00 103 108/66 05/01/16 08:15 Room Air 05/01/16 07:00 99.3 103 16 108/66 89 Room Air 99.3 Laboratory Laboratory Laboratory Tests Test 05/02/16 03:15 White Blood Count 10.8x10^3/uL (4.0-11.0) Red Blood Count 4.28x10^6/uL (3.50-5.40) Hemoglobin 12.4g/dL (12.0-15.5) Hematocrit 37.9% (36.0-47.0) Mean Corpuscular Volume 89fL (79-100) Mean Corpuscular Hemoglobin 29pg (25-35) Mean Corpuscular Hemoglobin Concent 33g/dL (31-37) Red Cell Distribution Width 15.0% (11.5-14.5) Platelet Count 299x10^3/uL (140-400) Neutrophils (%) (Auto) 69% (31-73) Lymphocytes (%) (Auto) 15% (24-48) Monocytes (%) (Auto) 11% (0-9) Eosinophils (%) (Auto) 5% (0-3) Basophils (%) (Auto) 1% (0-3) Neutrophils # (Auto) 7.5x10^3uL (1.8-7.7) Lymphocytes # (Auto) 1.6x10^3/uL (1.0-4.8) Monocytes # (Auto) 1.2x10^3/uL (0.0-1.1) Eosinophils # (Auto) 0.5x10^3/uL (0.0-0.7) Basophils # (Auto) 0.1x10^3/uL (0.0-0.2) Prothrombin Time 13.9SEC (11.7-14.0) Prothromb Time International Ratio 1.1 (0.8-1.1) Sodium Level 136mmol/L (136-145) Potassium Level 4.4mmol/L (3.5-5.1) Chloride Level 101mmol/L (98-107) Carbon Dioxide Level 27mmol/L (21-32) Anion Gap 8 (6-14) Blood Urea Nitrogen 17mg/dL (7-20) Creatinine 0.6mg/dL (0.6-1.0) Estimated GFR (Cockcroft-Gault) 98.5 Glucose Level 84mg/dL (70-99) Calcium Level 8.7mg/dL (8.5-10.1) Medication Medications Current Medications Dabigatran (Pradaxa) 150 mg BID PO ; Start 05/02/16 at 13:00 Info (Anti-Coagulation Monitoring By Pharmacy) 1 each PRN DAILY PRN MC SEE COMMENTS; Start 05/02/16 at 15:30 Mirtazapine (Remeron) 15 mg QHS PO ; Start 05/02/16 at 21:00 Comment Review of Relevant I have reviewed the following items sridevi (where applicable) has been applied. JAY GODINEZ MD May 02, 2016 15:38
[2016-05-02] MEDS: DABIGATRAN ETEXILATE 150 MG CAPSULE. PO SCH ×2 (15:49→20:25)
[2016-05-02 19:00] VITALS: BP 118/62
[2016-05-02] MEDS: FUROSEMIDE 40 MG TABLET PO SCH (20:25)
[2016-05-02] MEDS: traZODone 50 MG TABLET. PO SCH (20:26)
[2016-05-02] MEDS ORDERED: MIRTAZAPINE 15 MG TABLET PO SCH (21:00)
[2016-05-02 23:00] VITALS: BP 119/66
[2016-05-03 03:00] VITALS: BP 109/63
[2016-05-03 04:05] LABS: BASO # 0.1 x10^3/uL (0.0-0.2); BASO % 1 % (0-3); EOS % 5 % (0-3); HEMATOCRIT 35.6 % (36.0-47.0); HEMOGLOBIN 11.6 g/dL (12.0-15.5); LYMPH # 2.1 x10^3/uL (1.0-4.8); LYMPH % 18 % (24-48); MEAN CORPUSCULAR HEMOGLOBIN 29 pg (25-35); MEAN CORPUSCULAR HGB CONC 32 g/dL (31-37); MEAN CORPUSCULAR VOLUME 89 fL (79-100); MONO % 9 % (0-9); NEUT % 67 % (31-73); PLATELET COUNT 316 x10^3/uL (140-400); RED BLOOD COUNT 3.99 x10^6/uL (3.50-5.40); RED CELL DISTRIBUTION WIDTH 15.1 % (11.5-14.5); WHITE BLOOD COUNT 11.5 x10^3/uL (4.0-11.0)
[2016-05-03 04:27] LABS: CALCIUM 8.5 mg/dL (8.5-10.1); CREATININE 0.5 mg/dL (0.6-1.0); GFR 121.6; POTASSIUM 4.2 mmol/L (3.5-5.1)
[2016-05-03 07:00] VITALS: BP 115/61
[2016-05-03] MEDS: CHOLESTYRAMINE/ASPARTAME 4 GM PACKET PO SCH (08:59)
[2016-05-03] MEDS: NICOTINE 14MG PATCH. TD SCH (08:59)
[2016-05-03] MEDS: VANCOMYCIN 125 MG/2.5 ML ORAL SOLUTION. PO SCH ×2 (08:59→13:25)
[2016-05-03] MEDS: DABIGATRAN ETEXILATE 150 MG CAPSULE. PO SCH (09:01)
[2016-05-03] MEDS: LACTOBACILLUS ACIDOPH & BULGAR 1 TABLET. PO SCH (09:01)
[2016-05-03] MEDS: HYDRALAZINE 10 MG TABLET PO SCH (09:01)
[2016-05-03] MEDS: PAROXETINE 20 MG TABLET. PO SCH (09:01)
[2016-05-03] MEDS: BACLOFEN 10 MG TABLET PO SCH ×2 (09:02→13:25)
[2016-05-03] MEDS: OXYCODONE IR 5 MG TABLET. PO PRN (09:02)
[2016-05-03] MEDS: POTASSIUM CHLORIDE 20 MEQ TABLET.ER. PO SCH (09:02)
[2016-05-03] MEDS: MULTIVITAMIN with MINERAL TABLET. PO SCH (09:02)
[2016-05-03] MEDS: CARVEDILOL 6.25 MG TABLET PO SCH (09:03)
[2016-05-03] MEDS ORDERED: CARV6.252 PO (10:32)
[2016-05-03] MEDS ORDERED: MIRT15TA3 PO (10:32)
[2016-05-03] MEDS ORDERED: ERGO500012 PO (10:32)
--- NOTE | 2016-05-03 10:54 | PDOC3 ---
Discharge Summary [facility] Date of Admission: Apr 28, 2016 Discharge Date: May 03, 2016 Admitting Diagnosis chronic bl leg pain with MS LE weakness, bilateral Left leg hematoma with pain related to oral anticoagulation. swelling on OSH imaging htn HX C. diff, recurrent, on vanco po chronically Thrombocytopenia was reported, normal here depression, NOS insomnia, anxiety bl lower ext chronically DVT, with IVC filter Problems: Final Diagnosis Problems Medical Problems: (1) Hematoma Status: Acute (2) Multiple sclerosis Status: Acute CONSULTS neuro ortho Brief Hospital Course Ms. Cordova is a 70 old F, chronic bl leg pain and stiffness with MS, bl chronic DVT on xarelto but held for a while in SNF recently, was sent from [facility] for left thigh hematoma with pain. Hb stable Pt is very depressed, refused PTOT many days, US repeated here showed bl lower ext diffuse DVT, has IVC filter. i talked to dr. Johnson who think the hematoma is small (8cm) and no intervention was done and ok to restart AC. dc back to SNF, cont pradaxa, add mirtazapine and on paxil for depression, need PTOT dc time 40min General: Alert, Oriented X3, Cooperative, mild distress, moderate distress Heart: Regular rate, No murmurs Lungs: Clear Abdomen: Normal bowel sounds Extremities: No clubbing, Other (weakness bilat, diffuse. bl leg/feet edema, left side worse) Skin: No rashes Problems: Disposition snf CONDITION AT DISCHARGE: Stable Diet regular Scheduled Baclofen (Baclofen) 20 MG PO TID (Reported) Carvedilol (Carvedilol) 3.125 MG PO BIDWMEALS Dabigatran Etexilate Mesylate (Pradaxa) 150 MG PO BID (Reported) Ergocalciferol (Vitamin D2) (Vitamin D2) 50,000 UNIT PO WEEKLY Furosemide (Furosemide) 40 MG PO DAILY (Reported) Hydralazine Hcl (Hydralazine Hcl) 1 TAB PO BID (Reported) Lisinopril (Lisinopril) 20 MG PO BID (Reported) Mirtazapine (Mirtazapine) 15 MG PO QHS Multivitamin (Multivitamins) 1 TAB PO DAILY (Reported) Nicotine (NICODERM CQ 14mg) 1 PATCH TP DAILY (Reported) Paroxetine Hcl (Paroxetine Hcl) 40 MG PO DAILY (Reported) Potassium Chloride (Potassium Chloride) 20 MEQ PO DAILY (Reported) Vancomycin HCl (Vancomycin HCl) 125 MG PO QID (Reported) Scheduled PRN Alprazolam (Xanax) 0.25 MG PO PRN DAILY PRN PRN ANXIETY / AGITATION (Reported) Miscellaneous Medications Cholestyramine (With Sugar) (Questran Packet) 4 GM PO (Reported) Lactobacillus Acidophilus (Acidophilus) 1 EACH PO (Reported) Discontinued Medications Carvedilol (Carvedilol) 1 TAB PO BID (Reported) Follow Up pcp in 2 weeks SETH CHRISTY MD May 03, 2016 10:54
[2016-05-03 11:00] VITALS: BP 110/60
[2016-05-03] MEDS: HYDROCODONE/APAP 5/325MG TABLET. PO PRN (13:30)
--- NOTE | 2016-05-03 14:40 | PDOC ---
PROGRESS NOTES Assessment Assessment Chronic paraplegia for more than 5 years. Chronic urinary incontinence x 5 years.. Chronic LE weakness x 5 years. Large left thigh hematoma, 8.6 x 2 x 4.2 cm. Bilateral LE DVT. Seizure, hx Possible stroke in 09/16. Smoking Drinking MS x 22 years per her statement but not showed on MRI in 2015. Questionable MS. Narcotic use. Vit D deficiency. RECOMMENDATIONS/PLAN: L-spine MRI w/wo contrast. Treat medical diseases. Vit D and Ca++ supplement. Cannot perform LP on anticoagulant. Repeat brain MRI w/wo contrast in a few months. OT/PT Rehab. Brain MRI and C-spine MRI w/wo contrast on 04/29: No MS conformed. No new lesion. Small vessel disease. HISTORY OF THE PRESENT ILLNESS: 70-y-old female patient stated that she has been having MS for 22 years. She said she had flare-up in the past years, but became persistent paraplegia and wheelchair bound sometimes for about 5 years. She stated she was able to mobile a week ago, but totally paraplegic since last Monday04/22/16. She has been using [facility] for 5 years. She has not received any MS treatment. She said she has not seen Neurology before. She had brain MRI in 09/2015 which did not show evidence of MS. PAST MEDICAL HISTORY: Please see above. PAST SURGERY HISTORY: No major surgery recently. ALLERGY: Unknown MEDICATIONS: Refer to [facility] FAMILY HISTORY: Non contributory. SOCIAL HISTORY: Denies illicit drug use. She smokes 1 pack of cigarettes a day for about 40 years, then decreased 1 pack for 2 days. She drinks alcohol from time to time. REVIEW OF SYSTEMS: Constitutional: Malnutrition. Head: No recent traumatic brain or head injury. Skin: No edema, or rash. Ear: No infection, tinnitus. Eyes: No vision loss or color blindness. Nose: No bleeding or purulent discharges. Hearing: No hearing decrease. Neck: No injury. Breast: No history of cancer, masses,or discharges. Cardiac: No IN, arrhythmia. Pulmonary: No COPD. GI: No GI ulcer, GI bleeding. Urinary/genital: incontinence. Endocrinologic: No cousin face, craniofacial dysmorphism, polydactyly, goiter. Skeletomuscular: Generalized weakness. Neurological: see HP. Psychiatric: Smoking, longstanding Otherwise, not [id number] review of systems. PHYSICAL EXAMINATION: General appearance is in subacute on chronic distress. HEENT: Normocephalic and nontraumatic. Eyes, nose, ears, and throat are unremarkable. Neck is supple. No lymphadenopathy. No bruits are heard over the carotid artery. No crepitus. Cardiovascular: S1, S2, regular rate and rhythm. Pulmonary: Clear to auscultation bilaterally. Abdomen: Bowel sounds are positive. Extremities: No rash, lesions. Edema noted in LE. No restriction of range of motion in UE, paraplegic in LE NEUROLOGICAL EXAMINATION: Alert Oriented to time, place and person. PERRL. EOMI. CN: no focal findings. Muscle tone: fluctuated. Muscle strength: 4 UE, 1-2 LE DTR: 1+ UE, 0 at knee Plantar reflex: No response bilaterally Gait: Unable to walk. Sensory exam: no acute abnormal findings. No obvious cerebellar signs elicited. F-T-N test slow and not accurate. Objective Objective Vital Signs Date Time Temp Pulse Resp B/P Pulse Ox O2 Delivery O2 Flow Rate FiO2 05/03/16 13:30 Room Air 05/03/16 11:00 98.1 82 18 110/60 91 98.1 05/03/16 10:15 1.0 Intake and Output 05/03/16 07:00 Intake Total 330 ml Output Total 875 ml Balance -545 ml Intake Oral 330 ml Output Urine Total 875 ml # Bowel Movements 6 Vitals Signs Vitals VS - Last 72 Hours, by Label Date Time Temp Pulse Resp B/P Pulse Ox O2 Delivery O2 Flow Rate FiO2 05/03/16 13:30 Room Air 05/03/16 11:00 98.1 82 18 110/60 91 Room Air 98.1 05/03/16 10:15 Nasal Cannula 1.0 05/03/16 09:03 88 115/61 05/03/16 09:02 Nasal Cannula 1.0 05/03/16 09:01 88 115/61 05/03/16 08:00 Nasal Cannula 1.0 05/03/16 07:00 97.9 88 18 115/61 90 Nasal Cannula 1.0 97.9 05/03/16 03:00 97.7 76 18 109/63 93 Nasal Cannula 1.0 97.7 05/02/16 23:00 97.9 81 18 119/66 95 Nasal Cannula 1.0 97.9 05/02/16 20:29 84 118/62 05/02/16 20:24 Nasal Cannula 05/02/16 19:40 Nasal Cannula 1.0 05/02/16 19:00 97.9 84 18 118/62 93 Nasal Cannula 1.0 97.9 05/02/16 17:00 88 117/67 05/02/16 15:00 98.1 88 16 117/67 95 Nasal Cannula 1.0 98.1 05/02/16 12:24 Nasal Cannula 1.0 05/02/16 11:00 98.8 86 16 107/57 91 Nasal Cannula 1.0 98.8 05/02/16 10:15 Nasal Cannula 2.0 05/02/16 09:17 94 119/62 05/02/16 09:16 Nasal Cannula 1.0 05/02/16 09:15 94 119/62 05/02/16 07:50 Nasal Cannula 1.0 05/02/16 07:00 98.1 94 12 119/62 95 Nasal Cannula 1.0 98.1 Laboratory Laboratory Laboratory Tests Test 05/03/16 03:13 White Blood Count 11.5x10^3/uL (4.0-11.0) Red Blood Count 3.99x10^6/uL (3.50-5.40) Hemoglobin 11.6g/dL (12.0-15.5) Hematocrit 35.6% (36.0-47.0) Mean Corpuscular Volume 89fL (79-100) Mean Corpuscular Hemoglobin 29pg (25-35) Mean Corpuscular Hemoglobin Concent 32g/dL (31-37) Red Cell Distribution Width 15.1% (11.5-14.5) Platelet Count 316x10^3/uL (140-400) Neutrophils (%) (Auto) 67% (31-73) Lymphocytes (%) (Auto) 18% (24-48) Monocytes (%) (Auto) 9% (0-9) Eosinophils (%) (Auto) 5% (0-3) Basophils (%) (Auto) 1% (0-3) Neutrophils # (Auto) 7.7x10^3uL (1.8-7.7) Lymphocytes # (Auto) 2.1x10^3/uL (1.0-4.8) Monocytes # (Auto) 1.1x10^3/uL (0.0-1.1) Eosinophils # (Auto) 0.6x10^3/uL (0.0-0.7) Basophils # (Auto) 0.1x10^3/uL (0.0-0.2) Sodium Level 137mmol/L (136-145) Potassium Level 4.2mmol/L (3.5-5.1) Chloride Level 102mmol/L (98-107) Carbon Dioxide Level 29mmol/L (21-32) Anion Gap 6 (6-14) Blood Urea Nitrogen 15mg/dL (7-20) Creatinine 0.5mg/dL (0.6-1.0) Estimated GFR (Cockcroft-Gault) 121.6 Glucose Level 90mg/dL (70-99) Calcium Level 8.5mg/dL (8.5-10.1) Medication Medications Current Medications Info (Anti-Coagulation Monitoring By Pharmacy) 1 each PRN DAILY PRN MC SEE COMMENTS; Start 05/02/16 at 15:30 Mirtazapine (Remeron) 15 mg QHS PO Last administered on 05/02/16t 20:25; Start 05/02/16 at 21:00 Comment Review of Relevant I have reviewed the following items sridevi (where applicable) has been applied. JAY GODINEZ MD May 03, 2016 14:40
[2016-05-03] MEDS ORDERED: CALCIUM CARBONATE 500 MG TAB.CHEW PO SCH (15:00)
[2016-05-03] MEDS ORDERED: CHOLECALCIFEROL (VITAMIN D3) 5,000 UNIT CAPSULE PO SCH (15:00)
== END 2016-05-03 15:45 | DRG 605 ==
LOC: 4 NORTH 13:44
PROVIDERS: ADMIT Internal Medicine; ATTEND Internal Medicine
DX: S80.12XA Contusion of left lower leg, initial encounter (principal); G82.20 Paraplegia, unspecified; A04.7 Enterocolitis due to Clostridium difficile; G35 Multiple sclerosis; D69.6 Thrombocytopenia, unspecified; E55.9 Vitamin D deficiency, unspecified; F17.210 Nicotine dependence, cigarettes, uncomplicated; X58.XXXA Exposure to other specified factors, initial encounter; F32.9 Major depressive disorder, single episode, unspecified; F41.9 Anxiety disorder, unspecified; I10 Essential (primary) hypertension; I73.9 Peripheral vascular disease, unspecified; Z86.718 Personal history of other venous thrombosis and embolism; Z86.73 Personal history of transient ischemic attack (TIA), and cerebral infarction without residual deficits; Z87.440 Personal history of urinary (tract) infections; Z99.3 Dependence on wheelchair; Y93.89 Activity, other specified; Y92.89 Other specified places as the place of occurrence of the external cause; T45.515A Adverse effect of anticoagulants, initial encounter; R32 Unspecified urinary incontinence; G47.00 Insomnia, unspecified
CPT/HCPCS: 36415; 70553; 72156; 80048; 81001; 82306; 82550; 82607; 84439; 84443; 84480; 85027; 85610; 87086; 87324; 87641; 93970; 94250; 94760; G0481; J7040; A9585